=== PATIENT | female | born 1960 | race Two or more races ===

== ENCOUNTER 2024-02-26 13:34 | Outpatient (RCR) | payer MEDICAID, SELFPAY ==
[2024-02-17 15:04] LABS: Basophils % (Auto) 1 % (0-2.5); Eosinophils % (Auto) 1 % (0-10); Hematocrit 30.7 % (36.0-46.0); Hemoglobin 9.7 g/dL (12.0-16.0); Immature Granulocytes % (Auto) 0 % (0-0); Lymphocytes # (Auto) 0.4 Thou/mm3 (1.0-4.8); Lymphocytes % (Auto) 28 % (10-50); Mean Corpuscular HGB Conc 31.6 g/dl (31.0-37.0); Mean Corpuscular Hemoglobin 25.1 pg (25.0-35.0); Mean Corpuscular Volume 79 fL (80-100); Monocytes # (Auto) 0.2 Thou/mm3 (0.0-0.8); Monocytes % (Auto) 10 % (0-12); Neutrophils # (Auto) 0.9 Thou/mm3 (1.8-7.7); Neutrophils % (Auto) 61 % (37-80); Nucleated Red Blood Cell % 0 /100 WBC (0); RDW Standard Deviation 50.1 fL (36.4-46.3); Red Blood Count 3.87 Miln/mm3 (4.00-5.20)
[2024-02-17 15:22] LABS: Alanine Aminotransferase 46 U/L (10-49); Albumin, Serum 3.1 gm/dL (3.4-4.8); Albumin/Globulin Ratio 1.1 (1.2-2.2); Alkaline Phosphatase 181 U/L (46-116); Anion Gap 5 (7-16); Aspartate Amino Transferase 41 U/L (0-34); BUN/Creatinine Ratio 12 Ratio (12-20); Bilirubin,Total 2.2 mg/dL (0.3-1.2); Blood Urea Nitrogen 11 mg/dL (9-23); Calcium 8.4 mg/dL (8.3-10.6); Calcium (Corrected) 9.1 mg/dL (8.5-10.1); Carbon Dioxide 23.1 mMol/L (20.0-31.0); Chloride 105 mMol/L (98-107); Creatinine (Component) 0.9 mg/dL (0.6-1.3); Globulin 2.9 gm/dL (2.3-3.5); Glucose 399 mg/dL (74-106); Osmolality,Calculated 282 (275-295); Potassium 4.6 mMol/L (3.4-5.1); Sodium 133 mMol/L (136-145); Thyroid Stimulating Hormone 1.16 uIU/mL (0.55-4.78); eGFR > 60 See Note
[2024-02-17 15:34] LABS: White Blood Count 1.5 Thou/mm3 (3.6-11.0)
[2024-02-17 15:35] LABS: Platelet Count 37 Thou/mm3 (140-440)
[2024-02-17 15:51] LABS: Slide Review Platelets confirmed
[2024-02-17 15:53] LABS: Path Review Blood Smear Sent to Pathologist
[2024-02-25 16:36] LABS: Basophils % (Auto) 1 % (0-2.5); Eosinophils % (Auto) 2 % (0-10); Hematocrit 34.7 % (36.0-46.0); Hemoglobin 10.6 g/dL (12.0-16.0); Immature Granulocytes % (Auto) 0 % (0-0); Lymphocytes # (Auto) 0.4 Thou/mm3 (1.0-4.8); Lymphocytes % (Auto) 27 % (10-50); Mean Corpuscular HGB Conc 30.5 g/dl (31.0-37.0); Mean Corpuscular Hemoglobin 25.7 pg (25.0-35.0); Mean Corpuscular Volume 84 fL (80-100); Monocytes # (Auto) 0.2 Thou/mm3 (0.0-0.8); Monocytes % (Auto) 11 % (0-12); Neutrophils % (Auto) 60 % (37-80); Nucleated Red Blood Cell % 0 /100 WBC (0); RDW Standard Deviation 54.9 fL (36.4-46.3); Red Blood Count 4.12 Miln/mm3 (4.00-5.20)
[2024-02-25 16:46] LABS: Platelet Count 39 Thou/mm3 (140-440); White Blood Count 1.6 Thou/mm3 (3.6-11.0)
[2024-02-25 17:17] LABS: Alanine Aminotransferase 43 U/L (10-49); Albumin, Serum 3.3 gm/dL (3.4-4.8); Albumin/Globulin Ratio 1.1 (1.2-2.2); Alkaline Phosphatase 221 U/L (46-116); Anion Gap 8 (7-16); Aspartate Amino Transferase 37 U/L (0-34); BUN/Creatinine Ratio 13 Ratio (12-20); Blood Urea Nitrogen 10 mg/dL (9-23); Calcium 8.6 mg/dL (8.3-10.6); Calcium (Corrected) 9.2 mg/dL (8.5-10.1); Carbon Dioxide 20.8 mMol/L (20.0-31.0); Chloride 108 mMol/L (98-107); Creatinine (Component) 0.8 mg/dL (0.6-1.3); Globulin 3.1 gm/dL (2.3-3.5); Glucose 389 mg/dL (74-106); Osmolality,Calculated 288 (275-295); Potassium 3.9 mMol/L (3.4-5.1); Sodium 137 mMol/L (136-145); Thyroid Stimulating Hormone 0.78 uIU/mL (0.55-4.78); Total Protein 6.4 gm/dL (5.7-8.2); eGFR > 60 See Note
[2024-02-25 17:32] LABS: Slide Review Platelets confirmed
== END 2024-03-14 23:59 | disposition home or self-care (01) ==
LOC: SCTC 13:34
PROVIDERS: PCP Family Medicine; Referring Provider Family Medicine; Visit Provider Internal Medicine Hematology & Oncology
DX: Z51.11 Encounter for antineoplastic chemotherapy (principal); C22.0 Liver cell carcinoma; D50.9 Iron deficiency anemia, unspecified; Z86.19 Personal history of other infectious and parasitic diseases; D61.818 Other pancytopenia; D69.6 Thrombocytopenia, unspecified; L98.8 Other specified disorders of the skin and subcutaneous tissue; R16.1 Splenomegaly, not elsewhere classified; K76.6 Portal hypertension; R18.8 Other ascites
CPT/HCPCS: 36591; 80053; 82105; 84443; 85025; 96365; 96367; 96372; 96413; 99212; A4216; J1642; J2405; J3490; J7050; J9173; Q0138; G0463

== ENCOUNTER 2024-03-25 13:57 | Outpatient (RCR) | payer MEDICAID, SELFPAY ==
[2024-03-24 11:08] LABS: Basophils % (Auto) 1 % (0-2.5); Eosinophils % (Auto) 2 % (0-10); Hematocrit 37.5 % (36.0-46.0); Hemoglobin 12.2 g/dL (12.0-16.0); Immature Granulocytes % (Auto) 0 % (0-0); Lymphocytes # (Auto) 0.6 Thou/mm3 (1.0-4.8); Lymphocytes % (Auto) 34 % (10-50); Mean Corpuscular HGB Conc 32.5 g/dl (31.0-37.0); Mean Corpuscular Hemoglobin 27.3 pg (25.0-35.0); Mean Corpuscular Volume 84 fL (80-100); Monocytes # (Auto) 0.2 Thou/mm3 (0.0-0.8); Monocytes % (Auto) 10 % (0-12); Neutrophils % (Auto) 54 % (37-80); Nucleated Red Blood Cell % 0 /100 WBC (0); RDW Standard Deviation 62.1 fL (36.4-46.3); Red Blood Count 4.47 Miln/mm3 (4.00-5.20)
[2024-03-24 11:28] LABS: Alanine Aminotransferase 57 U/L (10-49); Albumin, Serum 3.4 gm/dL (3.4-4.8); Albumin/Globulin Ratio 1.2 (1.2-2.2); Alkaline Phosphatase 199 U/L (46-116); Anion Gap 5 (7-16); Aspartate Amino Transferase 38 U/L (0-34); BUN/Creatinine Ratio 13 Ratio (12-20); Blood Urea Nitrogen 8 mg/dL (9-23); Calcium 8.8 mg/dL (8.3-10.6); Calcium (Corrected) 9.3 mg/dL (8.5-10.1); Carbon Dioxide 25.6 mMol/L (20.0-31.0); Chloride 105 mMol/L (98-107); Creatinine (Component) 0.6 mg/dL (0.6-1.3); Globulin 2.8 gm/dL (2.3-3.5); Glucose 185 mg/dL (74-106); Osmolality,Calculated 275 (275-295); Potassium 3.6 mMol/L (3.4-5.1); Sodium 136 mMol/L (136-145); Thyroid Stimulating Hormone 2.25 uIU/mL (0.55-4.78); Total Protein 6.2 gm/dL (5.7-8.2); White Blood Count 1.9 Thou/mm3 (3.6-11.0); eGFR > 60 See Note
[2024-03-24 11:29] LABS: Platelet Count 52 Thou/mm3 (140-440); Slide Review Platelets confirmed
== END 2024-04-14 23:59 | disposition home or self-care (01) ==
LOC: SCTC 13:57
PROVIDERS: PCP Family Medicine; Referring Provider Family Medicine; Visit Provider Internal Medicine Hematology & Oncology
DX: Z51.11 Encounter for antineoplastic chemotherapy (principal); C22.0 Liver cell carcinoma; D50.9 Iron deficiency anemia, unspecified
CPT/HCPCS: 36591; 80053; 82105; 84443; 85025; 96365; 96367; 96375; 96413; A4216; J1642; J2405; J2919; J3490; J7050; J9173; Q0138

== ENCOUNTER 2024-04-27 14:32 | Outpatient (RCR) | payer MEDICAID, SELFPAY ==
[2024-04-21 10:47] LABS: Basophils % (Auto) 0 % (0-2.5); Eosinophils % (Auto) 2 % (0-10); Hematocrit 38.4 % (36.0-46.0); Immature Granulocytes % (Auto) 1 % (0-0); Immature Granulocytes Auto 0.01 Thou/mm3 (0.00-0.00); Lymphocytes # (Auto) 0.5 Thou/mm3 (1.0-4.8); Lymphocytes % (Auto) 22 % (10-50); Mean Corpuscular HGB Conc 33.9 g/dl (31.0-37.0); Mean Corpuscular Hemoglobin 29.3 pg (25.0-35.0); Mean Corpuscular Volume 87 fL (80-100); Monocytes # (Auto) 0.2 Thou/mm3 (0.0-0.8); Monocytes % (Auto) 9 % (0-12); Neutrophils # (Auto) 1.5 Thou/mm3 (1.8-7.7); Neutrophils % (Auto) 66 % (37-80); Nucleated Red Blood Cell % 0 /100 WBC (0); RDW Standard Deviation 61.5 fL (36.4-46.3); Red Blood Count 4.44 Miln/mm3 (4.00-5.20)
[2024-04-21 10:57] LABS: Platelet Count 36 Thou/mm3 (140-440); White Blood Count 2.2 Thou/mm3 (3.6-11.0)
[2024-04-21 11:09] LABS: Alanine Aminotransferase 59 U/L (10-49); Albumin, Serum 3.1 gm/dL (3.4-4.8); Albumin/Globulin Ratio 1.1 (1.2-2.2); Alkaline Phosphatase 227 U/L (46-116); Anion Gap 7 (7-16); Aspartate Amino Transferase 55 U/L (0-34); BUN/Creatinine Ratio 12 Ratio (12-20); Bilirubin,Total 1.8 mg/dL (0.3-1.2); Blood Urea Nitrogen 7 mg/dL (9-23); Calcium 8.7 mg/dL (8.3-10.6); Calcium (Corrected) 9.4 mg/dL (8.5-10.1); Carbon Dioxide 25.2 mMol/L (20.0-31.0); Chloride 107 mMol/L (98-107); Creatinine (Component) 0.6 mg/dL (0.6-1.3); Globulin 2.9 gm/dL (2.3-3.5); Glucose 159 mg/dL (74-106); Osmolality,Calculated 278 (275-295); Potassium 3.5 mMol/L (3.4-5.1); Sodium 139 mMol/L (136-145); eGFR > 60 See Note
[2024-04-21 13:02] LABS: Slide Review Platelets confirmed
[2024-04-21 13:57] LABS: Thyroid Stimulating Hormone 3.51 uIU/mL (0.55-4.78)
--- NOTE | 2024-04-27 15:40 | CTCFLWUP_ITS ---
Patient: NICHOLE FITZGERALD : 1960 Page 2 of 2 FOLLOW UP NOTE DATE OF SERVICE: 04/27/2024 NAME: NICHOLE FITZGERALD ACCOUNT: [id number] : 1960 AGE: 63 INTERVAL HISTORY: Patient was evaluated by her commercial account officer and found to have well-functioning TIPS. I also revi ewed notes from [facility] and recommendation was to continue durvalumab and MRI every 4 months to see resp onse to treatment. Patient otherwise doing well. She has received 3 doses of iron. ONCOLOGY HISTORY: DIAGNOSIS: Iron deficiency anemia, unspecified [ICD10] D50.9 DATE OF DIAGNOSIS: 02/21/2022 STAGE/TNM: Hepatocellular cancer TREATMENT HISTORY: Care?Plan Start?Date Cycle Day Intent VENOfer?200mg?IV?wkly?for?10?weeks 03/12/2022 1 70 Palliative Atezolizumab?plus?Avastin 06/21/2022 1 21 Palliative ATEZolizumab?1 12/19/2022 1 21 Palliative INJECTAFER 12/13/2022 1 14 Palliative Tremelimumab?Durvalumab 03/12/2023 1 28 Palliative Durvalumab?maintenance?cholangiocarcinoma?regimen?2 11/05/2023 1 28 Palliative FERAheme?4?doses 02/17/2024 1 28 Maintenance HISTORY OF PRESENT ILLNESS: Nichole Gomez is a 63-year-old S[place] speaking female referred to hematology clinic to evaluate the cause for pancytopenia. Patient was previously seen at [facility] who did not feel she was a candidate for surgical resection, and subsequently referred for radioembolization (Y90) ablation therapy at [facility] in [facility] who, per jude vega, then referred patient to our cancer center for immunotherapy to see if the tumor could be s hrunk first. 1980s: Patient had multiple blood transfusions in [place] for hemorrhage. 2006: Patient was diagnosed with hepatitis C, cirrhosis of the liver and thrombocytopenia. 2018: She was treated for hepatitis C with injections. Patient does not remember the names of the [facility] gs. 2019: Patient had colonoscopy done 08/24/2021: WBC 2.3, ANC 1.2, hemoglobin 10.6, MCV 71, platelet count 52,000 peripheral smear showed f ew teardrop cells, ovalocytes, schistocytes 01/03/2022: AFP 47.1, HIV negative, ferritin 5 HCV RT-PCR quantitative negative hemoglobin 9.8, MCV 74 , platelets 45,000. 02/05/2022: Platelet count 60,000. 02/21/2022: MRI of the abdomen with and without contrast? 05/25/2022: CT scan of the chest, abdomen and pelvis with IV contrast: 07/12/2022: AFP level 231 07/23/2022: Patient reports feeling good, denies complaints except concern about a 1cm round purpuric scaley lesion on distal left arm. She reports tolerating her first two atezolizumab and bevacizumab infusions on 023 and 07/12/2022 very well with no symptoms, next session is planned for 08/02/2022. She has been getting them via RUE PICC line, as her platelets were deemed too low for port-a-cath placement. Patient has previously received avatrombopag to raise platelet levels, however this must be balanced against the risk of thrombosis. A CT scan on 06/13/2022 showed extensive tumor thrombus in the portal venous system, for which patient was started on treatment dose Eliquis. However, on this visit patient?s daughter reports that the [facility] tumor board d eemed anticoagulation too risky given patient?s thrombocytopenia and hx GI bleed and discontinued it (we wi ll request this documentation from them). Patient?s daughter also reports that on 06/19/2022, patient?s lymph node was biopsied (we will request these records as well). Dr Haines called and spoke with IR Dr Reed by phone on 07/23/2022, who agrees to attempt chemo-port plac ement as long as patient has 2 units of platelet pheresis running right before. CBC/PT/INR will also need to b e redrawn beforehand. It will be coordinated via Elisa at his construction or leak gang laborer. 09/13/2022 AFP 2.7 06/19/2022 pathology report came through from 06/19/2022: 09/25/2022: CT 10/18/2022: MRI abdomen w/o contrast 10/29/2022: AFP 3.30, bilirubin 3.5 11/13/2022 - 11/19/2022: Patient was admitted to the hospital for upper GI bleeding from esophageal varic es. She had banding done. 12/06/2022: T. bili is 2.7, AFP is 3.80. 12/20/2022 - 01/01/2023: Ms. Fitzgerald was admitted to [facility] because of bleed ing varicose veins as well as hypotension requiring pressor support. 01/10/2023: MRI abdomen with and without contrast, MRI abdomen without contrast MRCP? 03/12/2023: Ms. Fitzgerald is started on tremelimumab and durvalumab. 05/23/2023: Ms. Fitzgerald was admitted to [facility] due to upper GI bleeding fro m esophageal varices. She had banding done in the hospital by Dr. Garland. Currently she is being aleksandar luated for TIPS procedure later this week in [place] by Dr. Snyder. 08/30/2023: MRI of the abdomen 12/12/2023 MRI liver impression Bob RADS category LR M DIV based on 02/21/2022 appearance and resuming noted local regional therapy for the dominant lesion in segment 4A oblique 8 although there is centra l hypointense area that appears to be relatively nonviable tumor there is again a surrounding area of ill-defined hyperenhancement which is likely viable tumor. Focus arterial enhancement along the lef t inferior aspect described on 01/10/2023 has not recently changed. Observation is likely not signifi cantly changed from 05/14/2023 and 01/10/2023 the other previously described liver observation has been downgraded to Bob RADS category alert to. 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 albuterol - 90 mcg/actuation As directed 2. atorvastatin - 20 mg 1 tab Daily 3. lactulose - 20 gram 1 Three times a day 4. Lantus Solostar - 100 unit/mL (3 mL) 35 Unit Twice a Day 5. pantoprazole - 40 mg 1 Daily 6. Synthroid - 50 mcg 1 tab As directed 7. Xifaxan - 550 mg Twice a Day 8. ZyrTEC - 10 mg 1 Capsule Daily Medications Last Reconciled by Norma Tapia RN on 04/27/2024 ALLERGIES: No Known Drug Allergies REVIEW OF SYSTEMS: A complete 14-point review of systems was performed and is negative except as noted in interval histo ry. PHYSICAL EXAMINATION: VITAL SIGNS: Temperature?98.6, B/P?128/75, Oxygen?Saturation?94% Weight?170?lbs (Change?since?04/22/24: ?0.6?lbs) PAIN: 0 - No pain ECOG Performance Status: 1 - Symptomatic; ambulatory; restricted in strenuous activity GENERAL APPEARANCE: Appears well, in no apparent distress, appropriately interactive. HEENT: Normocephalic, no temporal wasting, normal conjunctiva, no scleral icterus, normal hearing, li ps without lesions, neck normal range of motion. CARDIOVASCULAR: Not assessed. PULMONARY: Normal respiratory effort, no respiratory distress or use of accessory muscles, speaking i n full sentences, no tachypnea. EXTREMITIES: No pedal edema or cyanosis. SKIN: Normal skin appearance. NEUROLOGIC: Alert and oriented x4. PSHYCHIATRIC: Appropriate affect, mood normal, behavior normal, intact thought and speech. LABORATORY DATA: I have personally reviewed and interpreted each of the patient?s relevant lab tests, abnormal finding s are below: Date 04/21/24 ??GLUCOSE,RANDOM?(mg/dL) 159?H ??BLOOD?UREA?NITROGEN?(mg/dL) 7?L ??CREATININE?(mg/dL) 0.60 ??SODIUM?(mmol/L) 139 ??POTASSIUM?(mmol/L) 3.5 ??CHLORIDE?(mmol/L) 107 ??CrCl?(CandG)?(ml/min) 117.79 ??AST/SGOT?(Unit/L) 55?H ??ALT/SGPT?(Unit/L) 59?H ??ALKALINE?PHOSPHATASE?(Unit/L) 227?H ??BILIRUBIN,?TOTAL?(mg/dL) 1.8?H ??PROTEIN?TOTAL?(gm/dl) 6.0 ??ALBUMIN,?SERUM?(gm/dl) 3.1?L ??GLOBULIN?(gm/dl) 2.9 ??ALBUMIN/GLOBULIN?RATIO 1.1?L ??CALCIUM,?SERUM?(mg/dL) 8.7 ??CALCIUM?SERUM?(CORRECTED)?(mg/dL) 9.4 ASSESSMENT/PLAN: Hepatocellular tumor Patient received first dose of durvalumab and tremelimumab and now on maintenance durvalumab recently Ms. Fitzgerald had follow-up visit with Dr. Farmer of [facility] who recommended continuing du rvalumab Ms. Fitzgerald is currently on single agent dose of durvalumab. She is tolerating it reasonably well.. Both last MRIs have been unreliable showing significant motion artifacts. This artifacts are likely from TIPS procedure. She had banding done by Dr. Garland. She completed TIPS procedure in [place]. She is on durvalumab. She received 1 dose of tremelimumab and with [facility] prior to that. . Ms. Fitzgerald had a ERCP done on 01/10/2023 in [place] which showed focal narrowing in the mid to distal common bile duct about the level of the pancreatic head with a diameter measured narrows down to about 1 mm. Patient was admitted to [facility] on 12/20/2022 because of hypotension and bleeding from bart icose veins. Patient was recently admitted to the hospital because of upper GI bleeding from esophageal varices fo r which banding was performed. -Well differentiated hepatocellular carcinoma with elevated AFP level. AFP remains low, following un lacey [facility] as well Patient was treated with atezolizumab and bevacizumab. Patient's alpha-fetoprotein was more than 700 0 at the time of occurrence. Patient's alpha-fetoprotein protein remains in single-digit now Patient have CT scan ordered to follow-up on the lungs which is scheduled for end of this month Patient need MRI to evaluate any liver lesions orders placed Patient would like to get it completed at [facility] Follow-up with CBC CMP alpha-fetoprotein 2 weeks 2. Portal vein thrombus --CT scans showed right lobe liver lesion as well as splenomegaly, portal hy pertension, mild ascites as well as extensive para-aortic, paracaval lymphadenopathy. CT scan on 06/13/2022 scan also showed extensive tumo r thrombus in the portal venous system for which treatment-dose Eliquis was previously initiated, and s topped per [facility] tumor board due to concern for thrombocytopenia and previous GI bleed. 3. Iron deficiency anemia s/p 10 weekly Venofer infusions (January-March 2022) followed by low ir on level and is now being treated with Feraheme. Patient already received 1.5 g of iron I will defer the last dosing in 2 to 3 months 4. History of hepatitis C infection, she was treated with unknown medication(s) in [place] in 2017 5. End-stage liver disease (ESLD) 2/2 hepatitis C infection 2/2 blood transfusion in 1979 6. Complications of ESLD including ascites on diuretics, GI bleed 2/2 portal HTN and esophageal vari anirudh s/p ligation, pancytopenia 7. Thrombocytopenia previously responded well to Doptelet (avatrombopag). Continue to monitor MRI abdomen pelvis ordered CBC CMP alpha-fetoprotein CT is already ordered RETURN TO CLINIC: 4 weeks BILLING AND COMPLIANCE: I reviewed external records from providers outside my specialty as summarized above. I spent a total of 50 minutes on this patient?s care on the day of their visit excluding time spent related to any bi lled procedures. This time includes time spent with the patient as well as time spent documenting in the medical record, reviewing patients records and tests, obtaining history, placing orders, communi cating with other healthcare professionals, counseling the patient, family or caregiver, and/or care coordination for the diagnoses above. Electronically Signed by: Fransisco Dey MD T: 3:38 PM CC: PCP: Chau Arvizu Referring: Chau Arvizu This document was completed utilizing speech recognition software. Grammatical errors, random word in sertions, pronoun errors, and incomplete sentences are an occasional consequence of this system due t o software limitations, ambient noise, and hardware issues. Any formal questions or concerns about th e content, text or information contained within the body of this dictation should be directly address ed to the provider for clarification.
== END 2024-05-15 23:59 | disposition home or self-care (01) ==
LOC: SCTC 14:32
PROVIDERS: PCP Family Medicine; Referring Provider Family Medicine; Visit Provider Internal Medicine Hematology & Oncology
DX: Z51.11 Encounter for antineoplastic chemotherapy (principal); C22.0 Liver cell carcinoma; D50.9 Iron deficiency anemia, unspecified; D69.6 Thrombocytopenia, unspecified; Z86.19 Personal history of other infectious and parasitic diseases
CPT/HCPCS: 36591; 80053; 82105; 84443; 85025; 96365; 96367; 96375; 96413; 99212; A4216; J1642; J2919; J3490; J7050; J9173; Q0138; G0463

== ENCOUNTER → 2024-05-12 | Outpatient (CLI) | payer MEDICAID, SELFPAY ==
--- NOTE | 2024-05-12 12:00 | XR_ITS ---
Examination: CT chest with intravenous contrast 2-D sagittal and coronal reconstructions Exam date and time: May 04, 2024 1320 hours INDICATIONS: Diagnosis liver lung cancer diagnosis 2 years ago, restaging, 4 mm pulmonary nodule left lower lobe, 35 x 34 mm enhancing lesion right lobe liver on CT chest abdomen pelvis May 25, 2022 restaging CTDI:vol (mGy) 10.3 DLP: (mGycm) 368 Technique: Multiple axial sections of the thorax have been obtained. Sections have been obtained, 3 mm slice thickness. Mediastinal and lung density settings have been obtained. Intravenous contrast administered, 60 cc Isovue-370. 2-D sagittal, coronal images obtained. Low dose protocols were performed. One or more of the following dose reduction techniques were used; automated exposure control, adjustment of the mA and/or KV according to patient size, use of iterative reconstruction technique. Findings: No thoracic aortic aneurysmal dilatation No pulmonary artery emboli No paratracheal tracheobronchial or bronchopulmonary adenopathy No pneumonia, pulmonary edema, pleural disease 2 mm pulmonary nodule right lower lobe No left lung pulmonary nodules Portacaval shunt Liver irregular in contour Cholelithiasis Poorly defined lesion dome of the liver on the right, 20 mm Retrocardiac gastric hernia Right kidney visualized no hydronephrosis Splenomegaly Moderate osteopenia IMPRESSION: 2 mm pulmonary nodule right lower lobe, suggest continued 6 month follow-up CT chest without contrast Suspicious for new 20 mm lesion dome of the liver on the right, consider MRI abdomen liver follow-up pre and postcontrast
== END | disposition home or self-care (01) ==
LOC: CCTX 11:46
PROVIDERS: Referring Provider Internal Medicine Hematology & Oncology; Visit Provider Internal Medicine Hematology & Oncology
DX: R91.1 Solitary pulmonary nodule (principal); C22.0 Liver cell carcinoma
CPT/HCPCS: 71260; A4649; Q9967

== ENCOUNTER 2024-05-20 08:58 | Outpatient (RCR) | payer MEDICAID, SELFPAY ==
[2024-05-19 15:54] LABS: Basophils % (Auto) 1 % (0-2.5); Eosinophils % (Auto) 1 % (0-10); Hematocrit 39.3 % (36.0-46.0); Hemoglobin 13.3 g/dL (12.0-16.0); Immature Granulocytes % (Auto) 0 % (0-0); Lymphocytes # (Auto) 0.5 Thou/mm3 (1.0-4.8); Lymphocytes % (Auto) 24 % (10-50); Mean Corpuscular HGB Conc 33.8 g/dl (31.0-37.0); Mean Corpuscular Volume 89 fL (80-100); Monocytes # (Auto) 0.3 Thou/mm3 (0.0-0.8); Monocytes % (Auto) 13 % (0-12); Neutrophils # (Auto) 1.2 Thou/mm3 (1.8-7.7); Neutrophils % (Auto) 62 % (37-80); Nucleated Red Blood Cell % 0 /100 WBC (0); RDW Standard Deviation 54.9 fL (36.4-46.3); Red Blood Count 4.44 Miln/mm3 (4.00-5.20)
[2024-05-19 16:13] LABS: Platelet Count 37 Thou/mm3 (140-440)
[2024-05-19 16:16] LABS: Alanine Aminotransferase 78 U/L (10-49); Albumin, Serum 3.1 gm/dL (3.4-4.8); Alkaline Phosphatase 220 U/L (46-116); Anion Gap 9 (7-16); Aspartate Amino Transferase 72 U/L (0-34); BUN/Creatinine Ratio 13 Ratio (12-20); Bilirubin,Total 2.4 mg/dL (0.3-1.2); Blood Urea Nitrogen 10 mg/dL (9-23); Calcium 8.6 mg/dL (8.3-10.6); Calcium (Corrected) 9.3 mg/dL (8.5-10.1); Carbon Dioxide 23.2 mMol/L (20.0-31.0); Chloride 103 mMol/L (98-107); Creatinine (Component) 0.8 mg/dL (0.6-1.3); Osmolality,Calculated 288 (275-295); Potassium 4.1 mMol/L (3.4-5.1); Sodium 135 mMol/L (136-145); Thyroid Stimulating Hormone 1.97 uIU/mL (0.55-4.78); Total Protein 6.1 gm/dL (5.7-8.2); eGFR > 60 See Note
[2024-05-19 16:17] LABS: Glucose 433 mg/dL (74-106)
[2024-05-19 17:48] LABS: Slide Review Platelets confirmed
== END 2024-06-12 23:59 | disposition home or self-care (01) ==
LOC: SCTC 08:58
PROVIDERS: Referring Provider Internal Medicine Hematology & Oncology; Visit Provider Internal Medicine Hematology & Oncology
DX: Z51.11 Encounter for antineoplastic chemotherapy (principal); C22.0 Liver cell carcinoma; I81 Portal vein thrombosis; D50.9 Iron deficiency anemia, unspecified; I85.00 Esophageal varices without bleeding; K76.6 Portal hypertension; D61.818 Other pancytopenia; K72.10 Chronic hepatic failure without coma; Z86.19 Personal history of other infectious and parasitic diseases; R18.8 Other ascites
CPT/HCPCS: 36591; 80053; 82105; 84443; 85025; 96367; 96413; A4216; J1642; J2405; J7050; J9173

== ENCOUNTER 2024-06-25 08:35 | Outpatient (RCR) | payer MEDICAID, SELFPAY ==
[2024-06-16 15:11] LABS: Basophils % (Auto) 0 % (0-2.5); Eosinophils % (Auto) 1 % (0-10); Hematocrit 37.7 % (36.0-46.0); Hemoglobin 12.4 g/dL (12.0-16.0); Immature Granulocytes % (Auto) 0 % (0-0); Lymphocytes # (Auto) 0.4 Thou/mm3 (1.0-4.8); Lymphocytes % (Auto) 19 % (10-50); Mean Corpuscular HGB Conc 32.9 g/dl (31.0-37.0); Mean Corpuscular Hemoglobin 30.7 pg (25.0-35.0); Mean Corpuscular Volume 93 fL (80-100); Monocytes # (Auto) 0.2 Thou/mm3 (0.0-0.8); Monocytes % (Auto) 11 % (0-12); Neutrophils # (Auto) 1.3 Thou/mm3 (1.8-7.7); Neutrophils % (Auto) 69 % (37-80); Nucleated Red Blood Cell % 0 /100 WBC (0); RDW Standard Deviation 51.5 fL (36.4-46.3); Red Blood Count 4.04 Miln/mm3 (4.00-5.20)
[2024-06-16 15:22] LABS: Platelet Count 38 Thou/mm3 (140-440); Slide Review Platelets confirmed; White Blood Count 1.8 Thou/mm3 (3.6-11.0)
[2024-06-16 15:30] LABS: Alanine Aminotransferase 72 U/L (10-49); Albumin, Serum 3.1 gm/dL (3.4-4.8); Albumin/Globulin Ratio 1.1 (1.2-2.2); Alkaline Phosphatase 214 U/L (46-116); Anion Gap 7 (7-16); Aspartate Amino Transferase 66 U/L (0-34); BUN/Creatinine Ratio 13 Ratio (12-20); Bilirubin,Total 2.3 mg/dL (0.3-1.2); Blood Urea Nitrogen 8 mg/dL (9-23); Calcium 8.4 mg/dL (8.3-10.6); Calcium (Corrected) 9.1 mg/dL (8.5-10.1); Carbon Dioxide 23.7 mMol/L (20.0-31.0); Chloride 107 mMol/L (98-107); Creatinine (Component) 0.6 mg/dL (0.6-1.3); Globulin 2.7 gm/dL (2.3-3.5); Glucose 304 mg/dL (74-106); Osmolality,Calculated 284 (275-295); Sodium 138 mMol/L (136-145); Total Protein 5.8 gm/dL (5.7-8.2); eGFR > 60 See Note
[2024-06-25 09:36] LABS: Basophils % (Auto) 1 % (0-2.5); Eosinophils % (Auto) 1 % (0-10); Hemoglobin 11.8 g/dL (12.0-16.0); Immature Granulocytes % (Auto) 1 % (0-0); Immature Granulocytes Auto 0.01 Thou/mm3 (0.00-0.00); Lymphocytes # (Auto) 0.3 Thou/mm3 (1.0-4.8); Lymphocytes % (Auto) 18 % (10-50); Mean Corpuscular HGB Conc 32.8 g/dl (31.0-37.0); Mean Corpuscular Hemoglobin 30.9 pg (25.0-35.0); Mean Corpuscular Volume 94 fL (80-100); Monocytes # (Auto) 0.2 Thou/mm3 (0.0-0.8); Monocytes % (Auto) 14 % (0-12); Neutrophils % (Auto) 65 % (37-80); Nucleated Red Blood Cell % 0 /100 WBC (0); RDW Standard Deviation 51.8 fL (36.4-46.3); Red Blood Count 3.82 Miln/mm3 (4.00-5.20)
[2024-06-25 09:51] LABS: Alanine Aminotransferase 72 U/L (10-49); Albumin, Serum 2.9 gm/dL (3.4-4.8); Alkaline Phosphatase 204 U/L (46-116); Anion Gap 8 (7-16); Aspartate Amino Transferase 86 U/L (0-34); BUN/Creatinine Ratio 18 Ratio (12-20); Blood Urea Nitrogen 7 mg/dL (9-23); Calcium 8.4 mg/dL (8.3-10.6); Calcium (Corrected) 9.3 mg/dL (8.5-10.1); Carbon Dioxide 25.2 mMol/L (20.0-31.0); Chloride 111 mMol/L (98-107); Creatinine (Component) 0.4 mg/dL (0.6-1.3); Glucose 195 mg/dL (74-106); Osmolality,Calculated 289 (275-295); Potassium 3.3 mMol/L (3.4-5.1); Sodium 144 mMol/L (136-145); eGFR > 60 See Note
[2024-06-25 09:54] LABS: Bilirubin,Total 2.2 mg/dL (0.3-1.2); Globulin 2.8 gm/dL (2.3-3.5); Thyroid Stimulating Hormone 1.29 uIU/mL (0.55-4.78); Total Protein 5.7 gm/dL (5.7-8.2)
[2024-06-25 10:03] LABS: Platelet Count 38 Thou/mm3 (140-440); White Blood Count 1.5 Thou/mm3 (3.6-11.0)
[2024-06-25 11:16] LABS: Slide Review Platelets confirmed
--- NOTE | 2024-07-12 22:49 | CTCFLWUP_ITS ---
Patient: NICHOLE FITZGERALD : 1960 Page 6 of 8 FOLLOW UP NOTE DATE OF SERVICE: 06/24/2024 NAME: NICHOLE FITZGERALD ACCOUNT: [id number] : 1960 AGE: 64 INTERVAL HISTORY: Patient was evaluated by her fieldwork coordinator and found to have well- functioning TIPS. I also reviewed notes from [facility] and recommendation was to continue durvalumab and MRI every 4 months to see response to treatment. Patient otherwise doing well. She has received 3 doses of iron. ONCOLOGY HISTORY: DIAGNOSIS: Iron deficiency anemia, unspecified [ICD10] D50.9 DATE OF DIAGNOSIS: 02/21/2022 STAGE/TNM: Hepatocellular cancer TREATMENT HISTORY: Care?Plan Start?Date Cycle Day Intent VENOfer?200mg?IV?wkly?for?10?weeks 03/12/2022 1 70 Palliative Atezolizumab?plus?Avastin 06/21/2022 1 21 Palliative ATEZolizumab?1 12/19/2022 1 21 Palliative INJECTAFER 12/13/2022 1 14 Palliative Tremelimumab?Durvalumab 03/12/2023 1 28 Palliative Durvalumab?maintenance?cholangiocarcinoma?regimen?2 11/05/2023 1 28 Palliative FERAheme?4?doses 02/17/2024 1 28 Maintenance HISTORY OF PRESENT ILLNESS: Nichole Gomez is a 64-year-old S[place] speaking female referred to hematology clinic to evaluate the cause for pancytopenia. Patient was previously seen at [facility] who did not feel she was a candidate for surgical resection, and subsequently referred for radioembolization (Y90) ablation therapy at [facility] in [facility] who, per daughter, then referred patient to our cancer center for immunotherapy to see if the tumor could be shrunk first. 1980s: Patient had multiple blood transfusions in [place] for hemorrhage. 2006: Patient was diagnosed with hepatitis C, cirrhosis of the liver and thrombocytopenia. 2018: She was treated for hepatitis C with injections. Patient does not remember the names of the drugs. 2019: Patient had colonoscopy done 08/24/2021: WBC 2.3, ANC 1.2, hemoglobin 10.6, MCV 71, platelet count 52,000 peripheral smear showed few teardrop cells, ovalocytes, schistocytes 01/03/2022: AFP 47.1, HIV negative, ferritin 5 HCV RT-PCR quantitative negative hemoglobin 9.8, MCV 74, platelets 45,000. 02/05/2022: Platelet count 60,000. 02/21/2022: MRI of the abdomen with and without contrast? 05/25/2022: CT scan of the chest, abdomen and pelvis with IV contrast: 07/12/2022: AFP level 231 07/23/2022: Patient reports feeling good, denies complaints except concern about a 1cm round purpuric scaley lesion on distal left arm. She reports tolerating her first two atezolizumab and bevacizumab infusions on 06/21/2022 and 07/12/2022 very well with no symptoms, next session is planned for 08/02/2022. She has been getting them via RUE PICC line, as her platelets were deemed too low for port-a-cath placement. Patient has previously received avatrombopag to raise platelet levels, however this must be balanced against the risk of thrombosis. A CT scan on 06/13/2022 showed extensive tumor thrombus in the portal venous system, for which patient was started on treatment dose Eliquis. However, on this visit patient?s daughter reports that the [facility] tumor board deemed anticoagulation too risky given patient?s thrombocytopenia and hx GI bleed and discontinued it (we will request this documentation from them). Patient?s daughter also reports that on 06/19/2022, patient?s lymph node was biopsied (we will request these records as well). Dr Haines called and spoke with IR Dr Reed by phone on 07/23/2022, who agrees to attempt chemo-port placement as long as patient has 2 units of platelet pheresis running right before. CBC/PT/INR will also need to be redrawn beforehand. It will be coordinated via Elisa at his supervisor laboratory. 09/13/2022 AFP 2.7 06/19/2022 pathology report came through from 06/19/2022: 09/25/2022: CT 10/18/2022: MRI abdomen w/o contrast 10/29/2022: AFP 3.30, bilirubin 3.5 11/13/2022 - 11/19/2022: Patient was admitted to the hospital for upper GI bleeding from esophageal varices. She had banding done. 12/06/2022: T. bili is 2.7, AFP is 3.80. 12/20/2022 - 01/01/2023: Ms. Fitzgerald was admitted to [facility] ([facility] because of bleeding varicose veins as well as hypotension requiring pressor support. 01/10/2023: MRI abdomen with and without contrast, MRI abdomen without contrast MRCP? 03/12/2023: Ms. Fitzgerald is started on tremelimumab and durvalumab. 05/23/2023: Ms. Fitzgerald was admitted to [facility] due to upper GI bleeding from esophageal varices. She had banding done in the hospital by Dr. Garland. Currently she is being evaluated for TIPS procedure later this week in [place] by Dr. Snyder. 08/30/2023: MRI of the abdomen 12/12/2023 MRI liver impression Bob RADS category LR M DIV based on 02/21/2022 appearance and resuming noted local regional therapy for the dominant lesion in segment 4A oblique 8 although there is central hypointense area that appears to be relatively nonviable tumor there is again a surrounding area of ill-defined hyperenhancement which is likely viable tumor. Focus arterial enhancement along the left inferior aspect described on 01/10/2023 has not recently changed. Observation is likely not significantly changed from 05/14/2023 and 01/10/2023 the other previously described liver observation has been downgraded to Bob RADS category alert to. 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 albuterol - 90 mcg/actuation As directed 2. atorvastatin - 20 mg 1 tab Daily 3. azithromycin - 250 mg 6 tab Daily 4. lactulose - 20 gram 1 Three times a day 5. Lantus Solostar - 100 unit/mL (3 mL) 35 Unit Twice a Day 6. pantoprazole - 40 mg 1 Daily 7. Synthroid - 50 mcg 1 tab As directed 8. Xifaxan - 550 mg Twice a Day 9. ZyrTEC - 10 mg 1 Capsule Daily Medications Last Reconciled by Elisa Gresham MD on 06/24/2024 ALLERGIES: No Known Drug Allergies REVIEW OF SYSTEMS: A complete 14-point review of systems was performed and is negative except as noted in interval history. PHYSICAL EXAMINATION: VITAL SIGNS: Temperature?98.6, B/P?127/68, Oxygen?Saturation?92% Weight?177?lbs (Change?since?06/16/24:?-0.6?lbs) PAIN: 0 - No pain ECOG Performance Status: None GENERAL APPEARANCE: Appears well, in no apparent distress, appropriately interactive. HEENT: Normocephalic, no temporal wasting, normal conjunctiva, no scleral icterus, normal hearing, lips without lesions, neck normal range of motion. CARDIOVASCULAR: Not assessed. PULMONARY: Normal respiratory effort, no respiratory distress or use of accessory muscles, speaking in full sentences, no tachypnea. EXTREMITIES: No pedal edema or cyanosis. SKIN: Normal skin appearance. NEUROLOGIC: Alert and oriented x4. PSHYCHIATRIC: Appropriate affect, mood normal, behavior normal, intact thought and speech. LABORATORY DATA: I have personally reviewed and interpreted each of the patient?s relevant lab tests, abnormal findings are below: Date 06/16/24 06/25/24 ??WHITE?BLOOD?COUNT?(Thou/mm3) 1.8?L 1.5?L ??RED?BLOOD?COUNT?(Miln/mm3) 4.04 3.82?L ??HEMOGLOBIN?(gm/dl) 12.4 11.8?L ??HEMATOCRIT?(%) 37.7 36.0 ??PLATELET?COUNT?(Thou/mm3) 38?L 38?L ??NEUTROPHILS?%,?AUTO?(%) 69 65 ??LYMPH?%,?AUTO?(%) 19 18 ??NEUTROPHILS,?AUTO?(Thou/mm3) 1.3?L 1.0?L ??GLUCOSE,RANDOM?(mg/dL) 304?H 195?H ??BLOOD?UREA?NITROGEN?(mg/dL) 8?L 7?L ??CREATININE?(mg/dL) 0.60 0.40?L ??SODIUM?(mmol/L) 138 144 ??POTASSIUM?(mmol/L) 4.0 3.3?L ??CHLORIDE?(mmol/L) 107 111?H ??CrCl?(CandG)?(ml/min) 120.46 179.68 ??AST/SGOT?(Unit/L) 66?H 86?H ??ALT/SGPT?(Unit/L) 72?H 72?H ??ALKALINE?PHOSPHATASE?(Unit/L) 214?H 204?H ??BILIRUBIN,?TOTAL?(mg/dL) 2.3?H 2.2?H ??PROTEIN?TOTAL?(gm/dl) 5.8 5.7 ??ALBUMIN,?SERUM?(gm/dl) 3.1?L 2.9?L ??GLOBULIN?(gm/dl) 2.7 2.8 ??ALBUMIN/GLOBULIN?RATIO 1.1?L 1.0?L ??CALCIUM,?SERUM?(mg/dL) 8.4 8.4 ??CALCIUM?SERUM?(CORRECTED)?(mg/dL) 9.1 9.3 ASSESSMENT/PLAN: Hepatocellular tumor Patient received first dose of durvalumab and tremelimumab and now on maintenance durvalumab recently Ms. Fitzgerald had follow-up visit with Dr. Farmer of [facility] who recommended continuing durvalumab Ms. Fitzgerald is currently on single agent dose of durvalumab. She is tolerating it reasonably well.. Both last MRIs have been unreliable showing significant motion artifacts. This artifacts are likely from TIPS procedure. She had banding done by Dr. Garland. She completed TIPS procedure in [place]. She is on durvalumab. She received 1 dose of tremelimumab and with [facility] prior to that. . Ms. Fitzgerald had a ERCP done on 01/10/2023 in [place] which showed focal narrowing in the mid to distal common bile duct about the level of the pancreatic head with a diameter measured narrows down to about 1 mm. Patient was admitted to [facility] on 12/20/2022 because of hypotension and bleeding from varicose veins. Patient was recently admitted to the hospital because of upper GI bleeding from esophageal varices for which banding was performed. -Well differentiated hepatocellular carcinoma with elevated AFP level. AFP remains low, following under [facility] as well Patient was treated with atezolizumab and bevacizumab. Patient's alpha- fetoprotein was more than 7000 at the time of occurrence. Patient's alpha- fetoprotein protein remains in single-digit now Patient have CT scan ordered to follow-up on the lungs which is scheduled for end of this month Patient need MRI to evaluate any liver lesions orders placed Patient would like to get it completed at [facility] Follow-up with CBC CMP alpha-fetoprotein 2 weeks 2. Portal vein thrombus --CT scans showed right lobe liver lesion as well as splenomegaly, portal hypertension, mild ascites as well as extensive para-aortic, paracaval lymphadenopathy. CT scan on 06/13/2022 scan also showed extensive tumor thrombus in the portal venous system for which treatment-dose Eliquis was previously initiated, and stopped per [facility] tumor board due to concern for thrombocytopenia and previous GI bleed. 3. Iron deficiency anemia s/p 10 weekly Venofer infusions (January-March 2022) followed by low iron level and is now being treated with Feraheme. Patient already received 1.5 g of iron I will defer the last dosing in 2 to 3 months 4. History of hepatitis C infection, she was treated with unknown medication(s) in [place] in 2017 5. End-stage liver disease (ESLD) 2/2 hepatitis C infection 2/2 blood transfusion in 1979 6. Complications of ESLD including ascites on diuretics, GI bleed 2/2 portal HTN and esophageal varices s/p ligation, pancytopenia 7. Thrombocytopenia previously responded well to Doptelet (avatrombopag). Continue to monitor CT scan and MRI reviewed All stable Cont current therapy Mri will be as per patient s primary liver specialist ORDERS: Order # Description RETURN TO CLINIC: 3 months BILLING AND COMPLIANCE: I reviewed external records from providers outside my specialty as summarized above. I spent a total of 50 minutes on this patient?s care on the day of their visit excluding time spent related to any billed procedures. This time includes time spent with the patient as well as time spent documenting in the medical record, reviewing patients records and tests, obtaining history, placing orders, communicating with other healthcare professionals, counseling the patient, family or caregiver, and/or care coordination for the diagnoses above. Electronically Signed by: {Object.Sanct_ID*PnP.NameFL@M}, {Object.Sanct_ID*PnP.Suffix@U} D: {Object.Sanct_Date} T: {Object.Sanct_Time} CC: PCP: Chau Arvizu Referring: Chau Arvizu This document was completed utilizing speech recognition software. Grammatical errors, random word insertions, pronoun errors, and incomplete sentences are an occasional consequence of this system due to software limitations, ambient noise, and hardware issues. Any formal questions or concerns about the content, text or information contained within the body of this dictation should be directly addressed to the provider for clarification.
== END 2024-07-13 23:59 | disposition home or self-care (01) ==
LOC: SCTC 08:35
PROVIDERS: PCP Family Medicine; Referring Provider Family Medicine; Visit Provider Internal Medicine Hematology & Oncology
DX: Z51.11 Encounter for antineoplastic chemotherapy (principal); C22.0 Liver cell carcinoma; I81 Portal vein thrombosis; D50.9 Iron deficiency anemia, unspecified; Z86.19 Personal history of other infectious and parasitic diseases; D69.6 Thrombocytopenia, unspecified; K76.6 Portal hypertension; R18.8 Other ascites
CPT/HCPCS: 36591; 80053; 82105; 84443; 85025; 96367; 96413; 99212; A4216; J1642; J2405; J7050; J9173; G0463

== ENCOUNTER 2024-07-30 11:19 | Outpatient (RCR) | payer MEDICAID, SELFPAY ==
[2024-07-22 09:59] LABS: Basophils % (Auto) 1 % (0-2.5); Eosinophils % (Auto) 2 % (0-10); Hematocrit 39.9 % (36.0-46.0); Hemoglobin 13.5 g/dL (12.0-16.0); Immature Granulocytes % (Auto) 0 % (0-0); Lymphocytes # (Auto) 0.6 Thou/mm3 (1.0-4.8); Lymphocytes % (Auto) 34 % (10-50); Mean Corpuscular HGB Conc 33.8 g/dl (31.0-37.0); Mean Corpuscular Volume 89 fL (80-100); Monocytes # (Auto) 0.2 Thou/mm3 (0.0-0.8); Monocytes % (Auto) 11 % (0-12); Neutrophils # (Auto) 0.9 Thou/mm3 (1.8-7.7); Neutrophils % (Auto) 52 % (37-80); Nucleated Red Blood Cell % 0 /100 WBC (0); RDW Standard Deviation 46.6 fL (36.4-46.3)
[2024-07-22 10:04] LABS: Platelet Count 37 Thou/mm3 (140-440); White Blood Count 1.7 Thou/mm3 (3.6-11.0)
[2024-07-22 10:06] LABS: Slide Review Platelets confirmed
[2024-07-22 10:20] LABS: Alanine Aminotransferase 49 U/L (10-49); Albumin, Serum 3.1 gm/dL (3.4-4.8); Alkaline Phosphatase 215 U/L (46-116); Anion Gap 10 (7-16); Aspartate Amino Transferase 55 U/L (0-34); BUN/Creatinine Ratio 16 Ratio (12-20); Bilirubin,Total 2.9 mg/dL (0.3-1.2); Blood Urea Nitrogen 8 mg/dL (9-23); Calcium 8.2 mg/dL (8.3-10.6); Calcium (Corrected) 8.9 mg/dL (8.5-10.1); Carbon Dioxide 24.6 mMol/L (20.0-31.0); Chloride 109 mMol/L (98-107); Creatinine (Component) 0.5 mg/dL (0.6-1.3); Glucose 118 mg/dL (74-106); Osmolality,Calculated 286 (275-295); Potassium 3.2 mMol/L (3.4-5.1); Sodium 144 mMol/L (136-145); Total Protein 6.1 gm/dL (5.7-8.2); eGFR > 60 See Note
== END 2024-08-12 23:59 | disposition home or self-care (01) ==
LOC: SCTC 11:19
PROVIDERS: PCP Family Medicine; Referring Provider Family Medicine; Visit Provider Internal Medicine Hematology & Oncology
DX: Z51.11 Encounter for antineoplastic chemotherapy (principal); C22.0 Liver cell carcinoma; D50.9 Iron deficiency anemia, unspecified; I81 Portal vein thrombosis; Z86.19 Personal history of other infectious and parasitic diseases; D69.6 Thrombocytopenia, unspecified
CPT/HCPCS: 36591; 80053; 82105; 84443; 85025; 96365; 96367; 96375; 96413; A4216; J1642; J2405; J2919; J3490; J7040; J7050; J9173; Q0138

== ENCOUNTER 2024-08-24 15:28 | Outpatient (RCR) | payer MEDICAID, SELFPAY ==
[2024-08-19 10:08] LABS: Basophils % (Auto) 1 % (0-2.5); Eosinophils % (Auto) 2 % (0-10); Hematocrit 38.3 % (36.0-46.0); Hemoglobin 13.1 g/dL (12.0-16.0); Immature Granulocytes % (Auto) 1 % (0-0); Immature Granulocytes Auto 0.01 Thou/mm3 (0.00-0.00); Lymphocytes # (Auto) 0.6 Thou/mm3 (1.0-4.8); Lymphocytes % (Auto) 32 % (10-50); Mean Corpuscular HGB Conc 34.2 g/dl (31.0-37.0); Mean Corpuscular Hemoglobin 31.2 pg (25.0-35.0); Mean Corpuscular Volume 91 fL (80-100); Monocytes # (Auto) 0.3 Thou/mm3 (0.0-0.8); Monocytes % (Auto) 14 % (0-12); Neutrophils % (Auto) 51 % (37-80); Nucleated Red Blood Cell % 0 /100 WBC (0); RDW Standard Deviation 52.1 fL (36.4-46.3)
[2024-08-19 10:13] LABS: Platelet Count 45 Thou/mm3 (140-440); White Blood Count 1.9 Thou/mm3 (3.6-11.0)
[2024-08-19 10:29] LABS: Alanine Aminotransferase 50 U/L (10-49); Albumin, Serum 3.1 gm/dL (3.4-4.8); Alkaline Phosphatase 197 U/L (46-116); Anion Gap 6 (7-16); Aspartate Amino Transferase 51 U/L (0-34); BUN/Creatinine Ratio 15 Ratio (12-20); Bilirubin,Total 2.8 mg/dL (0.3-1.2); Blood Urea Nitrogen 6 mg/dL (9-23); Calcium 8.1 mg/dL (8.3-10.6); Calcium (Corrected) 8.8 mg/dL (8.5-10.1); Carbon Dioxide 23.4 mMol/L (20.0-31.0); Chloride 110 mMol/L (98-107); Creatinine (Component) 0.4 mg/dL (0.6-1.3); Glucose 90 mg/dL (74-106); Osmolality,Calculated 275 (275-295); Potassium 3.3 mMol/L (3.4-5.1); Sodium 139 mMol/L (136-145); Thyroid Stimulating Hormone 3.58 uIU/mL (0.55-4.78); Total Protein 6.1 gm/dL (5.7-8.2); eGFR > 60 See Note
[2024-08-19 11:14] LABS: Slide Review Platelets confirmed
--- NOTE | 2024-08-26 13:22 | CTCFLWUP_ITS ---
Patient: NICHOLE FITZGERALD : 1960 Page 2 of 2 FOLLOW UP NOTE DATE OF SERVICE: 08/24/2024 NAME: NICHOLE FITZGERALD ACCOUNT: [id number] : 1960 AGE: 64 INTERVAL HISTORY: Subjective: Chief Complaint Elevated liver enzymes, recurrent urinary tract infections History of Present Illness Nichole, a female patient with a history of liver disease and recent immunotherapy treatment, presents for follow-up regarding elevated liver enzymes and recurrent urinary tract infections. The patient reports a history of elevated liver enzymes, which have been slowly improving. She has been taking rifaximin 550 mg twice daily as part of her treatment regimen. The patient also mentions experiencing two episodes of urinary tract infections recently. The first episode was severe, with the patient noting blood in her urine. The second time, she sought medical attention promptly upon noticing symptoms, and was prescribed the same antibiotics as before. The patient does not report any current symptoms related to her liver condition or urinary tract infections. She mentions having seen a doctor at [facility] via videoconference recently, who detected the urinary tract infection and prescribed medication. Medications and Supplements - Rifaximin 550 mg by mouth twice daily - Used to keep ammonia low - Bactrim - Discontinued. Was used for urinary tract infection. - Macrobid 100 mg by mouth once daily - Used prophylactically for urinary tract infections Review of Systems Genitourinary: Positive for urinary tract infection, history of hematuria. Negative for vaginal dryness. Objective: Laboratory, Imaging, and Diagnostic Test Results - Liver enzymes: Elevated, slowly improving - Urinalysis: Positive for urinary tract infection (performed twice, dates not specified) yONCOLOGY HISTORY: DIAGNOSIS: Iron deficiency anemia, unspecified [ICD10] D50.9 DATE OF DIAGNOSIS: 02/21/2022 STAGE/TNM: Hepatocellular cancer TREATMENT HISTORY: Care?Plan Start?Date Cycle Day Intent VENOfer?200mg?IV?wkly?for?10?weeks 03/12/2022 1 70 Palliative Atezolizumab?plus?Avastin 06/21/2022 1 21 Palliative ATEZolizumab?1 12/19/2022 1 21 Palliative INJECTAFER 12/13/2022 1 14 Palliative Tremelimumab?Durvalumab 03/12/2023 1 28 Palliative Durvalumab?maintenance?cholangiocarcinoma?regimen?2 11/05/202305 12 Palliative FERAheme?4?doses 02/17/2024 1 28 Maintenance HISTORY OF PRESENT ILLNESS: Nichole Gomez is a 64-year-old S[place] speaking female referred to hematology clinic to evaluate the cause for pancytopenia. Patient was previously seen at [facility] who did not feel she was a candidate for surgical resection, and subsequently referred for radioembolization (Y90) ablation therapy at [facility] in [place], who, per daughter, then referred patient to our cancer center for immunotherapy to see if the tumor could be shrunk first. 1980s: Patient had multiple blood transfusions in [place] for hemorrhage. 2005: Patient was diagnosed with hepatitis C, cirrhosis of the liver and thrombocytopenia. 2018: She was treated for hepatitis C with injections. Patient does not remember the names of the drugs. 2019: Patient had colonoscopy done 08/24/2021: WBC 2.3, ANC 1.2, hemoglobin 10.6, MCV 71, platelet count 52,000 peripheral smear showed few teardrop cells, ovalocytes, schistocytes 01/03/2022: AFP 47.1, HIV negative, ferritin 5 HCV RT-PCR quantitative negative hemoglobin 9.8, MCV 74, platelets 45,000. 02/05/2022: Platelet count 60,000. 02/21/2022: MRI of the abdomen with and without contrast? 05/25/2022: CT scan of the chest, abdomen and pelvis with IV contrast: 07/12/2022: AFP level 231 07/23/2022: Patient reports feeling good, denies complaints except concern about a 1cm round purpuric scaley lesion on distal left arm. She reports tolerating her first two atezolizumab and bevacizumab infusions on 06/21/2022 and 07/12/2022 very well with no symptoms, next session is planned for 08/02/2022. She has been getting them via RUE PICC line, as her platelets were deemed too low for port-a-cath placement. Patient has previously received avatrombopag to raise platelet levels, however this must be balanced against the risk of thrombosis. A CT scan on 06/13/2022 showed extensive tumor thrombus in the portal venous system, for which patient was started on treatment dose Eliquis. However, on this visit patient?s daughter reports that the [facility] tumor board deemed anticoagulation too risky given patient?s thrombocytopenia and hx GI bleed and discontinued it (we will request this documentation from them). Patient?s daughter also reports that on 06/19/2022, patient?s lymph node was biopsied (we will request these records as well). Dr Haines called and spoke with IR Dr Reed by phone on 07/23/2022, who agrees to attempt chemo-port placement as long as patient has 2 units of platelet pheresis running right before. CBC/PT/INR will also need to be redrawn beforehand. 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 09/13/2022 AFP 2.7 06/19/2022 pathology report came through from 06/19/2022: 09/25/2022: CT 10/18/2022: MRI abdomen w/o contrast 10/29/2022: AFP 3.30, bilirubin 3.5 11/13/2022 - 11/19/2022: Patient was admitted to the hospital for upper GI bleeding from esophageal varices. She had banding done. 12/06/2022: T. bili is 2.7, AFP is 3.80. 12/20/2022 - 01/01/2023: Ms. Fitzgerald was admitted to [facility] because of bleeding varicose veins as well as hypotension requiring pressor support. 01/10/2023: MRI abdomen with and without contrast, MRI abdomen without contrast MRCP? 03/12/2023: Ms. Fitzgerald is started on tremelimumab and durvalumab. 05/23/2023: Ms. Fitzgerald was admitted to [facility] due to upper GI bleeding from esophageal varices. She had banding done in the hospital by Dr. Garland. Currently she is being evaluated for TIPS procedure later this week in [place] by Dr. Snyder. 08/30/2023: MRI of the abdomen 12/12/2023 MRI liver impression Bob RADS category LR M DIV based on 02/21/2022 appearance and resuming noted local regional therapy for the dominant lesion in segment 4A oblique 8 although there is central hypointense area that appears to be relatively nonviable tumor there is again a surrounding area of ill-defined hyperenhancement which is likely viable tumor. Focus arterial enhancement along the left inferior aspect described on 01/10/2023 has not recently changed. Observation is likely not significantly changed from 05/14/2023 and 01/10/2023 the other previously described liver observation has been downgraded to Bob RADS category alert to. 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 albuterol - 90 mcg/actuation As directed 2. atorvastatin - 20 mg 1 tab Daily 3. azithromycin - 250 mg 6 tab Daily 4. lactulose - 20 gram 1 Three times a day 5. Lantus Solostar - 100 unit/mL (3 mL) 35 Unit Twice a Day 6. nitrofurantoin macrocrystal - 100 mg 1 Capsule Daily 7. pantoprazole - 40 mg 1 Daily 8. Synthroid - 50 mcg 1 tab As directed 9. Xifaxan - 550 mg Twice a Day 10. ZyrTEC - 10 mg 1 Capsule Daily Medications Last Reconciled by Elisa Gresham MD on 08/24/2024 ALLERGIES: No Known Drug Allergies REVIEW OF SYSTEMS: A complete 14-point review of systems was performed and is negative except as noted in interval history. PHYSICAL EXAMINATION: VITAL SIGNS: Temperature?98.6, B/P?132/71, Oxygen?Saturation?95% Weight?174?lbs (Change?since?08/20/24:?-5.6?lbs) PAIN: 0 - No pain ECOG Performance Status: 0 - Asymptomatic and fully active GENERAL APPEARANCE: Appears well, in no apparent distress, appropriately interactive. HEENT: Normocephalic, no temporal wasting, normal conjunctiva, no scleral icterus, normal hearing, lips without lesions, neck normal range of motion. CARDIOVASCULAR: Not assessed. PULMONARY: Normal respiratory effort, no respiratory distress or use of accessory muscles, speaking in full sentences, no tachypnea. EXTREMITIES: No pedal edema or cyanosis. SKIN: Normal skin appearance. NEUROLOGIC: Alert and oriented x4. PSHYCHIATRIC: Appropriate affect, mood normal, behavior normal, intact thought and speech. LABORATORY DATA: I have personally reviewed and interpreted each of the patient?s relevant lab tests, abnormal findings are below: Date 07/22/24 08/19/24 ??WHITE?BLOOD?COUNT?(Thou/mm3) 1.7?L 1.9?L ??RED?BLOOD?COUNT?(Miln/mm3) 4.50 4.20 ??HEMOGLOBIN?(gm/dl) 13.5 13.1 ??HEMATOCRIT?(%) 39.9 38.3 ??PLATELET?COUNT?(Thou/mm3) 37?L 45?L ??NEUTROPHILS?%,?AUTO?(%) 52 51 ??LYMPH?%,?AUTO?(%) 34 32 ??NEUTROPHILS,?AUTO?(Thou/mm3) 0.9?L 1.0?L ??GLUCOSE,RANDOM?(mg/dL) 118?H 90 ??BLOOD?UREA?NITROGEN?(mg/dL) 8?L 6?L ??CREATININE?(mg/dL) 0.50?L 0.40?L ??SODIUM?(mmol/L) 144 139 ??POTASSIUM?(mmol/L) 3.2?L 3.3?L ??CHLORIDE?(mmol/L) 109?H 110?H ??CrCl?(CandG)?(ml/min) 139.18 180.09 ??AST/SGOT?(Unit/L) 55?H 51?H ??ALT/SGPT?(Unit/L) 49 50?H ??ALKALINE?PHOSPHATASE?(Unit/L) 215?H 197?H ??BILIRUBIN,?TOTAL?(mg/dL) 2.9?H 2.8?H ??PROTEIN?TOTAL?(gm/dl) 6.1 6.1 ??ALBUMIN,?SERUM?(gm/dl) 3.1?L 3.1?L ??GLOBULIN?(gm/dl) 3.0 3.0 ??ALBUMIN/GLOBULIN?RATIO 1.0?L 1.0?L ??CALCIUM,?SERUM?(mg/dL) 8.2?L 8.1?L ??CALCIUM?SERUM?(CORRECTED)?(mg/dL) 8.9 8.8 ASSESSMENT/PLAN: Hepatocellular tumor Patient received first dose of durvalumab and tremelimumab and now on maintenance durvalumab recently Ms. Fitzgerald had follow-up visit with Dr. Farmer of [facility] who recommended continuing durvalumab Ms. Fitzgerald is currently on single agent dose of durvalumab. She is tolerating it reasonably well.. Both last MRIs have been unreliable showing significant motion artifacts. This artifacts are likely from TIPS procedure. She had banding done by Dr. Garland. She completed TIPS procedure in [place]. She is on durvalumab. She received 1 dose of tremelimumab and with [facility] prior to that. . Ms. Fitzgerald had a ERCP done on 01/10/2023 in [place] which showed focal narrowing in the mid to distal common bile duct about the level of the pancreatic head with a diameter measured narrows down to about 1 mm. Patient was admitted to [facility] on 12/20/2022 because of hypotension and bleeding from varicose veins. Patient was recently admitted to the hospital because of upper GI bleeding from esophageal varices for which banding was performed. -Well differentiated hepatocellular carcinoma with elevated AFP level. AFP remains low, following under [facility] as well Patient was treated with atezolizumab and bevacizumab. Patient's alpha- fetoprotein was more than 7000 at the time of occurrence. Patient's alpha- fetoprotein protein remains in single-digit now Patient have CT scan ordered to follow-up on the lungs which is scheduled for end of this month Patient need MRI to evaluate any liver lesions orders placed Patient would like to get it completed at [facility] Follow-up with CBC CMP alpha-fetoprotein 2 weeks 2. Portal vein thrombus --CT scans showed right lobe liver lesion as well as splenomegaly, portal hypertension, mild ascites as well as extensive para-aortic, paracaval lymphadenopathy. CT scan on 06/13/2022 scan also showed extensive tumor thrombus in the portal venous system for which treatment-dose Eliquis was previously initiated, and stopped per [facility] tumor board due to concern for thrombocytopenia and previous GI bleed. 3. Iron deficiency anemia s/p 10 weekly Venofer infusions (January-March 2022) followed by low iron level and is now being treated with Feraheme. Patient already received 1.5 g of iron I will defer the last dosing in 2 to 3 months 4. History of hepatitis C infection, she was treated with unknown medication(s) in [place] in 2018 5. End-stage liver disease (ESLD) 2/2 hepatitis C infection 2/2 blood transfusion in 1979 6. Complications of ESLD including ascites on diuretics, GI bleed 2/2 portal HTN and esophageal varices s/p ligation, pancytopenia 7. Thrombocytopenia previously responded well to Doptelet (avatrombopag). Continue to monitor Assessment and Plan: Nichole, a female patient with a history of liver disease and recent immunotherapy, presents with recurrent urinary tract infections and elevated liver enzymes. Elevated liver enzymes Assessment: Patient has experienced an elevation in liver enzymes. The cause is unclear, potentially related to either TIPS (transjugular intrahepatic portosystemic shunt) dysfunction or immunotherapy side effects. Recent liver enzyme tests show slow improvement. [facility] consultation recommends continuing current treatment plan. Plan: - Continue current immunotherapy regimen - Continue rifaximin 550 mg PO BID - Avoid anticoagulants to maintain low ammonia levels - Order MRI of liver to assess current status - Monitor liver enzyme levels Recurrent urinary tract infections Assessment: Patient reports two recent episodes of urinary tract infection (UTI), with the first instance presenting with hematuria. The second episode was caught early and treated with the same antibiotic. Given the patient's immunocompromised state due to ongoing treatment, prophylactic measures are warranted to prevent further infections. Plan: - Initiate prophylactic antibiotic therapy with nitrofurantoin (Macrobid) 100 mg PO daily - Educate patient on increased fluid intake, including water and cranberry juice - Instruct patient on proper perineal hygiene: - Use fresh water for cleaning after bowel movements - Avoid using wipes due to potential pH alteration - Recommend use of water bottle or bidet for cleaning - Advise against use of Bactrim due to its potenc RETURN TO CLINIC: BILLING AND COMPLIANCE: I reviewed external records from providers outside my specialty as summarized above. I spent a total of 50 minutes on this patient?s care on the day of their visit excluding time spent related to any billed procedures. This time includes time spent with the patient as well as time spent documenting in the medical record, reviewing patients records and tests, obtaining history, placing orders, communicating with other healthcare professionals, counseling the patient, family or caregiver, and/or care coordination for the diagnoses above. Electronically Signed by: Fransisco Dey MD T: 1:20 PM CC: PCP: Chau Arvizu Referring: Chau Arvizu This document was completed utilizing speech recognition software. Grammatical errors, random word insertions, pronoun errors, and incomplete sentences are an occasional consequence of this system due to software limitations, ambient noise, and hardware issues. Any formal questions or concerns about the content, text or information contained within the body of this dictation should be directly addressed to the provider for clarification.
== END 2024-09-12 23:59 | disposition home or self-care (01) ==
LOC: SCTC 15:28
PROVIDERS: PCP Family Medicine; Referring Provider Family Medicine; Visit Provider Internal Medicine Hematology & Oncology
DX: Z51.11 Encounter for antineoplastic chemotherapy (principal); C22.0 Liver cell carcinoma; D61.818 Other pancytopenia; R74.8 Abnormal levels of other serum enzymes; Z87.440 Personal history of urinary (tract) infections; Z86.19 Personal history of other infectious and parasitic diseases
CPT/HCPCS: 36591; 80053; 82105; 84443; 85025; 96367; 96413; 99212; A4216; J1642; J2405; J7040; J7050; J9173; G0463

== ENCOUNTER 2024-09-17 09:02 | Outpatient (RCR) | payer MEDICAID, SELFPAY ==
[2024-09-16 16:22] LABS: Basophils % (Auto) 1 % (0-2.5); Eosinophils % (Auto) 1 % (0-10); Hemoglobin 12.4 g/dL (12.0-16.0); Immature Granulocytes % (Auto) 0 % (0-0); Lymphocytes # (Auto) 0.4 Thou/mm3 (1.0-4.8); Lymphocytes % (Auto) 28 % (10-50); Mean Corpuscular HGB Conc 34.4 g/dl (31.0-37.0); Mean Corpuscular Hemoglobin 30.9 pg (25.0-35.0); Mean Corpuscular Volume 90 fL (80-100); Monocytes # (Auto) 0.2 Thou/mm3 (0.0-0.8); Monocytes % (Auto) 12 % (0-12); Neutrophils # (Auto) 0.9 Thou/mm3 (1.8-7.7); Neutrophils % (Auto) 58 % (37-80); Nucleated Red Blood Cell % 0 /100 WBC (0); RDW Standard Deviation 48.1 fL (36.4-46.3); Red Blood Count 4.01 Miln/mm3 (4.00-5.20)
[2024-09-16 16:24] LABS: Platelet Count 34 Thou/mm3 (140-440); White Blood Count 1.6 Thou/mm3 (3.6-11.0)
[2024-09-16 16:28] LABS: Slide Review Platelets confirmed
[2024-09-16 16:40] LABS: Alanine Aminotransferase 75 U/L (10-49); Albumin, Serum 2.9 gm/dL (3.4-4.8); Albumin/Globulin Ratio 1.2 (1.2-2.2); Alkaline Phosphatase 195 U/L (46-116); Anion Gap 12 (7-16); Aspartate Amino Transferase 79 U/L (0-34); BUN/Creatinine Ratio 26 Ratio (12-20); Bilirubin,Total 2.4 mg/dL (0.3-1.2); Blood Urea Nitrogen 13 mg/dL (9-23); Calcium 7.8 mg/dL (8.3-10.6); Calcium (Corrected) 8.7 mg/dL (8.5-10.1); Chloride 108 mMol/L (98-107); Creatinine (Component) 0.5 mg/dL (0.6-1.3); Free T4 (Free Thyroxine) 1.09 ng/dL (0.89-1.76); Globulin 2.5 gm/dL (2.3-3.5); Glucose 221 mg/dL (74-106); Osmolality,Calculated 293 (275-295); Potassium 3.7 mMol/L (3.4-5.1); Sodium 144 mMol/L (136-145); Total Protein 5.4 gm/dL (5.7-8.2); eGFR > 60 See Note
[2024-09-17 10:12] LABS: Thyroid Stimulating Hormone 2.83 uIU/mL (0.55-4.78)
[2024-09-17 11:30] LABS: Collection Type, Urine Voided
[2024-09-17 11:44] LABS: Bacteria,Urine Rare; Bilirubin,Urine Negative (Negative); Blood,Urine Negative (Negative); Clarity,Urine Clear (Clear/Hazy); Color,Urine Yellow (Lt Yel-Yel); Glucose, Urine Negative (Negative); Ketones,Urine Negative (Negative); Leukocyte Esterase,Urine Negative (Negative); Nitrite,Urine Negative (Negative); Protein,Urine Negative (Neg - Trace); RBC,Urine 1 /hpf (0-3); Specific Gravity,Urine 1.018 (1.001-1.035); Squamous Epithelial Cell,Urine 3 /hpf (0-5); Urobilinogen,Urine Negative mg/dL (0.0-1.0); WBC,Urine 1 /hpf (0-5)
[2024-09-22 06:39] LABS: T3,Total* 85 ng/dL (76-181)
== END 2024-10-12 23:59 | disposition home or self-care (01) ==
LOC: SCTC 09:02
PROVIDERS: PCP Family Medicine; Referring Provider Family Medicine; Visit Provider Internal Medicine Hematology & Oncology
DX: Z51.11 Encounter for antineoplastic chemotherapy (principal); C22.0 Liver cell carcinoma; I81 Portal vein thrombosis; D50.9 Iron deficiency anemia, unspecified; Z86.19 Personal history of other infectious and parasitic diseases; Z87.440 Personal history of urinary (tract) infections; K72.10 Chronic hepatic failure without coma; R18.8 Other ascites; K76.6 Portal hypertension; I85.10 Secondary esophageal varices without bleeding
CPT/HCPCS: 36591; 80053; 81001; 82105; 84439; 84443; 84480; 85025; 96367; 96368; 96413; A4216; J1642; J2405; J7050; J9173

== ENCOUNTER 2024-11-05 09:03 | Outpatient (RCR) | payer MEDICAID, SELFPAY ==
[2024-10-14 16:10] LABS: Basophils # (Auto) 0.0 Thou/mm3 (0.0-0.2); Basophils % (Auto) 0 % (0-2.5); Eosinophils # (Auto) 0.0 Thou/mm3 (0.0-0.5); Eosinophils % (Auto) 2 % (0-10); Hematocrit 40.9 % (36.0-46.0); Hemoglobin 14.0 g/dL (12.0-16.0); Immature Granulocytes Auto 0.01 Thou/mm3 (0.00-0.00); Lymphocytes # (Auto) 0.5 Thou/mm3 (1.0-4.8); Lymphocytes % (Auto) 24 % (10-50); Mean Corpuscular HGB Conc 34.2 g/dl (31.0-37.0); Mean Corpuscular Hemoglobin 31.3 pg (25.0-35.0); Mean Corpuscular Volume 92 fL (80-100); Monocytes # (Auto) 0.2 Thou/mm3 (0.0-0.8); Monocytes % (Auto) 10 % (0-12); Neutrophils # (Auto) 1.3 Thou/mm3 (1.8-7.7); Neutrophils % (Auto) 64 % (37-80); Nucleated Red Blood Cell # 0.00 Thou/mm3 (0.00-0.00); Nucleated Red Blood Cell % 0 /100 WBC (0); RDW Standard Deviation 46.8 fL (36.4-46.3); Red Blood Count 4.47 Miln/mm3 (4.00-5.20)
[2024-10-14 16:25] LABS: AFP Non-Pregnant 3.70 ng/mL (<8.10)
[2024-10-14 16:28] LABS: Alanine Aminotransferase 88 U/L (10-49); Albumin, Serum 3.1 gm/dL (3.4-4.8); Albumin/Globulin Ratio 1.0 (1.2-2.2); Alkaline Phosphatase 232 U/L (46-116); Anion Gap 7 (7-16); Aspartate Amino Transferase 98 U/L (0-34); BUN/Creatinine Ratio 16 Ratio (12-20); Bilirubin,Total 3.1 mg/dL (0.3-1.2); Blood Urea Nitrogen 11 mg/dL (9-23); Calcium 8.5 mg/dL (8.3-10.6); Calcium (Corrected) 9.2 mg/dL (8.5-10.1); Carbon Dioxide 23.7 mMol/L (20.0-31.0); Chloride 110 mMol/L (98-107); Creatinine (Component) 0.7 mg/dL (0.6-1.3); Globulin 3.0 gm/dL (2.3-3.5); Glucose 294 mg/dL (74-106); Osmolality,Calculated 291 (275-295); Potassium 4.0 mMol/L (3.4-5.1); Sodium 141 mMol/L (136-145); Thyroid Stimulating Hormone 1.02 uIU/mL (0.55-4.78); Total Protein 6.1 gm/dL (5.7-8.2); eGFR > 60 See Note
[2024-10-14 16:31] LABS: Platelet Count 42 Thou/mm3 (140-440); White Blood Count 2.0 Thou/mm3 (3.6-11.0)
[2024-10-14 16:44] LABS: Slide Review Platelets confirmed
[2024-10-22 11:31] LABS: Basophils # (Auto) 0.0 Thou/mm3 (0.0-0.2); Basophils % (Auto) 0 % (0-2.5); Eosinophils # (Auto) 0.0 Thou/mm3 (0.0-0.5); Eosinophils % (Auto) 2 % (0-10); Hematocrit 38.4 % (36.0-46.0); Hemoglobin 13.3 g/dL (12.0-16.0); Immature Granulocytes Auto 0.00 Thou/mm3 (0.00-0.00); Lymphocytes # (Auto) 0.4 Thou/mm3 (1.0-4.8); Lymphocytes % (Auto) 23 % (10-50); Mean Corpuscular HGB Conc 34.6 g/dl (31.0-37.0); Mean Corpuscular Hemoglobin 30.9 pg (25.0-35.0); Mean Corpuscular Volume 89 fL (80-100); Monocytes # (Auto) 0.2 Thou/mm3 (0.0-0.8); Monocytes % (Auto) 9 % (0-12); Neutrophils # (Auto) 1.3 Thou/mm3 (1.8-7.7); Neutrophils % (Auto) 67 % (37-80); Nucleated Red Blood Cell # 0.00 Thou/mm3 (0.00-0.00); Nucleated Red Blood Cell % 0 /100 WBC (0); RDW Standard Deviation 45.4 fL (36.4-46.3); Red Blood Count 4.30 Miln/mm3 (4.00-5.20)
[2024-10-22 11:33] LABS: Platelet Count 32 Thou/mm3 (140-440); White Blood Count 1.9 Thou/mm3 (3.6-11.0)
[2024-10-22 11:52] LABS: AFP Non-Pregnant 4.00 ng/mL (<8.10)
[2024-10-22 11:54] LABS: Alanine Aminotransferase 93 U/L (10-49); Albumin, Serum 3.0 gm/dL (3.4-4.8); Albumin/Globulin Ratio 1.0 (1.2-2.2); Alkaline Phosphatase 221 U/L (46-116); Anion Gap 9 (7-16); Aspartate Amino Transferase 84 U/L (0-34); BUN/Creatinine Ratio 13 Ratio (12-20); Bilirubin,Direct 1.2 mg/dL (0.0-0.3); Bilirubin,Indirect 1.9 mg/dL (0.0-1.1); Bilirubin,Total 3.1 mg/dL (0.3-1.2); Blood Urea Nitrogen 8 mg/dL (9-23); Calcium 8.5 mg/dL (8.3-10.6); Calcium (Corrected) 9.3 mg/dL (8.5-10.1); Carbon Dioxide 25.8 mMol/L (20.0-31.0); Chloride 107 mMol/L (98-107); Creatinine (Component) 0.6 mg/dL (0.6-1.3); Globulin 3.0 gm/dL (2.3-3.5); Glucose 184 mg/dL (74-106); Osmolality,Calculated 286 (275-295); Potassium 3.5 mMol/L (3.4-5.1); Sodium 142 mMol/L (136-145); Thyroid Stimulating Hormone 2.35 uIU/mL (0.55-4.78); Total Protein 6.0 gm/dL (5.7-8.2); eGFR > 60 See Note
[2024-10-22 13:35] LABS: Slide Review Platelets confirmed
[2024-10-28 12:50] LABS: Basophils # (Auto) 0.0 Thou/mm3 (0.0-0.2); Basophils % (Auto) 1 % (0-2.5); Eosinophils # (Auto) 0.0 Thou/mm3 (0.0-0.5); Eosinophils % (Auto) 1 % (0-10); Hematocrit 39.8 % (36.0-46.0); Hemoglobin 13.9 g/dL (12.0-16.0); Immature Granulocytes Auto 0.01 Thou/mm3 (0.00-0.00); Lymphocytes # (Auto) 0.8 Thou/mm3 (1.0-4.8); Lymphocytes % (Auto) 37 % (10-50); Mean Corpuscular HGB Conc 34.9 g/dl (31.0-37.0); Mean Corpuscular Hemoglobin 31.2 pg (25.0-35.0); Mean Corpuscular Volume 89 fL (80-100); Monocytes # (Auto) 0.2 Thou/mm3 (0.0-0.8); Monocytes % (Auto) 12 % (0-12); Neutrophils # (Auto) 1.0 Thou/mm3 (1.8-7.7); Neutrophils % (Auto) 49 % (37-80); Nucleated Red Blood Cell # 0.00 Thou/mm3 (0.00-0.00); Nucleated Red Blood Cell % 0 /100 WBC (0); RDW Standard Deviation 45.5 fL (36.4-46.3); Red Blood Count 4.46 Miln/mm3 (4.00-5.20)
[2024-10-28 12:54] LABS: Platelet Count 34 Thou/mm3 (140-440); White Blood Count 2.1 Thou/mm3 (3.6-11.0)
[2024-10-28 13:07] LABS: Bilirubin,Direct 1.0 mg/dL (0.0-0.3)
[2024-10-28 13:09] LABS: Bilirubin,Direct 1.1 mg/dL (0.0-0.3); Bilirubin,Indirect 1.9 mg/dL (0.0-1.1); Bilirubin,Total 3.0 mg/dL (0.3-1.2)
[2024-10-28 13:10] LABS: Alanine Aminotransferase 53 U/L (10-49); Albumin, Serum 3.1 gm/dL (3.4-4.8); Albumin/Globulin Ratio 1.0 (1.2-2.2); Alkaline Phosphatase 223 U/L (46-116); Anion Gap 10 (7-16); Aspartate Amino Transferase 50 U/L (0-34); BUN/Creatinine Ratio 14 Ratio (12-20); Bilirubin,Total 3.0 mg/dL (0.3-1.2); Blood Urea Nitrogen 7 mg/dL (9-23); Calcium 8.4 mg/dL (8.3-10.6); Calcium (Corrected) 9.1 mg/dL (8.5-10.1); Carbon Dioxide 23.4 mMol/L (20.0-31.0); Chloride 108 mMol/L (98-107); Creatinine (Component) 0.5 mg/dL (0.6-1.3); Globulin 3.0 gm/dL (2.3-3.5); Glucose 71 mg/dL (74-106); Osmolality,Calculated 277 (275-295); Potassium 3.8 mMol/L (3.4-5.1); Sodium 141 mMol/L (136-145); Thyroid Stimulating Hormone 3.07 uIU/mL (0.55-4.78); Total Protein 6.1 gm/dL (5.7-8.2); eGFR > 60 See Note
[2024-10-28 15:43] LABS: Slide Review Platelets confirmed
[2024-11-04 11:24] LABS: Basophils # (Auto) 0.0 Thou/mm3 (0.0-0.2); Basophils % (Auto) 1 % (0-2.5); Eosinophils # (Auto) 0.0 Thou/mm3 (0.0-0.5); Eosinophils % (Auto) 1 % (0-10); Hematocrit 39.1 % (36.0-46.0); Hemoglobin 13.8 g/dL (12.0-16.0); Immature Granulocytes Auto 0.01 Thou/mm3 (0.00-0.00); Lymphocytes # (Auto) 0.4 Thou/mm3 (1.0-4.8); Lymphocytes % (Auto) 19 % (10-50); Mean Corpuscular HGB Conc 35.3 g/dl (31.0-37.0); Mean Corpuscular Hemoglobin 31.4 pg (25.0-35.0); Mean Corpuscular Volume 89 fL (80-100); Monocytes # (Auto) 0.2 Thou/mm3 (0.0-0.8); Monocytes % (Auto) 9 % (0-12); Neutrophils # (Auto) 1.3 Thou/mm3 (1.8-7.7); Neutrophils % (Auto) 70 % (37-80); Nucleated Red Blood Cell # 0.00 Thou/mm3 (0.00-0.00); Nucleated Red Blood Cell % 0 /100 WBC (0); RDW Standard Deviation 45.6 fL (36.4-46.3); Red Blood Count 4.40 Miln/mm3 (4.00-5.20)
[2024-11-04 11:35] LABS: Platelet Count 35 Thou/mm3 (140-440); White Blood Count 1.9 Thou/mm3 (3.6-11.0)
[2024-11-04 11:53] LABS: Slide Review Platelets confirmed
[2024-11-04 11:57] LABS: AFP Non-Pregnant 3.50 ng/mL (<8.10)
[2024-11-04 12:02] LABS: Bilirubin,Direct 1.1 mg/dL (0.0-0.3); Bilirubin,Indirect 1.6 mg/dL (0.0-1.1); Bilirubin,Total 2.7 mg/dL (0.3-1.2)
[2024-11-04 12:06] LABS: Alanine Aminotransferase 69 U/L (10-49); Albumin, Serum 3.2 gm/dL (3.4-4.8); Albumin/Globulin Ratio 1.1 (1.2-2.2); Alkaline Phosphatase 176 U/L (46-116); Anion Gap 11 (7-16); Aspartate Amino Transferase 80 U/L (0-34); BUN/Creatinine Ratio 15 Ratio (12-20); Bilirubin,Total 2.7 mg/dL (0.3-1.2); Blood Urea Nitrogen 9 mg/dL (9-23); Calcium 8.3 mg/dL (8.3-10.6); Calcium (Corrected) 8.9 mg/dL (8.5-10.1); Carbon Dioxide 22.2 mMol/L (20.0-31.0); Chloride 109 mMol/L (98-107); Creatinine (Component) 0.6 mg/dL (0.6-1.3); Globulin 2.9 gm/dL (2.3-3.5); Glucose 127 mg/dL (74-106); Osmolality,Calculated 283 (275-295); Potassium 3.2 mMol/L (3.4-5.1); Sodium 142 mMol/L (136-145); Thyroid Stimulating Hormone 1.87 uIU/mL (0.55-4.78); Total Protein 6.1 gm/dL (5.7-8.2); eGFR > 60 See Note
== END 2024-11-12 23:59 | disposition home or self-care (01) ==
LOC: SCTC 09:03
PROVIDERS: PCP Family Medicine; Referring Provider Family Medicine; Visit Provider Internal Medicine Hematology & Oncology
DX: Z51.11 Encounter for antineoplastic chemotherapy (principal); C22.0 Liver cell carcinoma; I81 Portal vein thrombosis; D50.9 Iron deficiency anemia, unspecified; I85.00 Esophageal varices without bleeding; D61.818 Other pancytopenia; Z87.440 Personal history of urinary (tract) infections; R74.8 Abnormal levels of other serum enzymes; Z86.19 Personal history of other infectious and parasitic diseases; Z87.19 Personal history of other diseases of the digestive system
CPT/HCPCS: 36591; 80053; 82105; 82247; 82248; 84443; 85025; 96360; 96367; 96413; A4216; J1642; J2405; J7030; J7050; J9173

== ENCOUNTER 2024-12-03 08:36 | Outpatient (RCR) | payer MEDICAID, SELFPAY ==
[2024-12-02 15:33] LABS: Basophils # (Auto) 0.0 Thou/mm3 (0.0-0.2); Basophils % (Auto) 0 % (0-2.5); Eosinophils # (Auto) 0.0 Thou/mm3 (0.0-0.5); Eosinophils % (Auto) 1 % (0-10); Hematocrit 41.5 % (36.0-46.0); Hemoglobin 14.2 g/dL (12.0-16.0); Immature Granulocytes Auto 0.01 Thou/mm3 (0.00-0.00); Lymphocytes # (Auto) 0.5 Thou/mm3 (1.0-4.8); Lymphocytes % (Auto) 28 % (10-50); Mean Corpuscular HGB Conc 34.2 g/dl (31.0-37.0); Mean Corpuscular Hemoglobin 31.6 pg (25.0-35.0); Mean Corpuscular Volume 92 fL (80-100); Monocytes # (Auto) 0.2 Thou/mm3 (0.0-0.8); Monocytes % (Auto) 10 % (0-12); Neutrophils # (Auto) 1.1 Thou/mm3 (1.8-7.7); Neutrophils % (Auto) 60 % (37-80); Nucleated Red Blood Cell # 0.00 Thou/mm3 (0.00-0.00); Nucleated Red Blood Cell % 0 /100 WBC (0); RDW Standard Deviation 47.1 fL (36.4-46.3); Red Blood Count 4.50 Miln/mm3 (4.00-5.20); White Blood Count 1.7 Thou/mm3 (3.6-11.0)
[2024-12-02 15:50] LABS: Platelet Count 38 Thou/mm3 (140-440)
[2024-12-02 16:06] LABS: Bilirubin,Direct 1.1 mg/dL (0.0-0.3); Bilirubin,Indirect 1.7 mg/dL (0.0-1.1); Bilirubin,Total 2.8 mg/dL (0.3-1.2)
[2024-12-02 16:08] LABS: Alanine Aminotransferase 72 U/L (10-49); Albumin, Serum 3.1 gm/dL (3.4-4.8); Albumin/Globulin Ratio 1.1 (1.2-2.2); Alkaline Phosphatase 221 U/L (46-116); Anion Gap 10 (7-16); Aspartate Amino Transferase 68 U/L (0-34); BUN/Creatinine Ratio 15 Ratio (12-20); Bilirubin,Total 2.8 mg/dL (0.3-1.2); Blood Urea Nitrogen 9 mg/dL (9-23); Calcium 8.8 mg/dL (8.3-10.6); Calcium (Corrected) 9.5 mg/dL (8.5-10.1); Carbon Dioxide 23.0 mMol/L (20.0-31.0); Chloride 107 mMol/L (98-107); Creatinine (Component) 0.6 mg/dL (0.6-1.3); Globulin 2.9 gm/dL (2.3-3.5); Glucose 294 mg/dL (74-106); Osmolality,Calculated 289 (275-295); Potassium 4.0 mMol/L (3.4-5.1); Sodium 140 mMol/L (136-145); Thyroid Stimulating Hormone 0.86 uIU/mL (0.55-4.78); Total Protein 6.0 gm/dL (5.7-8.2); eGFR > 60 See Note
[2024-12-02 16:25] LABS: Slide Review Platelets confirmed
[2024-12-02 16:40] LABS: Path Review Blood Smear Sent to Pathologist
== END 2024-12-13 23:59 | disposition home or self-care (01) ==
LOC: SCTC 08:36
PROVIDERS: PCP Family Medicine; Referring Provider Family Medicine; Visit Provider Internal Medicine Hematology & Oncology
DX: Z51.11 Encounter for antineoplastic chemotherapy (principal); C22.0 Liver cell carcinoma; Z87.440 Personal history of urinary (tract) infections; Z86.19 Personal history of other infectious and parasitic diseases; I81 Portal vein thrombosis; D50.9 Iron deficiency anemia, unspecified
CPT/HCPCS: 36591; 80053; 82247; 82248; 84443; 85025; 96367; 96413; A4216; J1642; J2405; J7050; J9173

== ENCOUNTER → 2024-12-30 | Outpatient (CLI) | payer MEDICAID, SELFPAY ==
[2024-12-30 11:14] LABS: Basophils # (Auto) 0.0 Thou/mm3 (0.0-0.2); Basophils % (Auto) 1 % (0-2.5); Eosinophils # (Auto) 0.1 Thou/mm3 (0.0-0.5); Eosinophils % (Auto) 3 % (0-10); Hematocrit 43.1 % (36.0-46.0); Hemoglobin 14.5 g/dL (12.0-16.0); Immature Granulocytes Auto 0.00 Thou/mm3 (0.00-0.00); Lymphocytes # (Auto) 0.7 Thou/mm3 (1.0-4.8); Lymphocytes % (Auto) 35 % (10-50); Mean Corpuscular HGB Conc 33.6 g/dl (31.0-37.0); Mean Corpuscular Hemoglobin 31.1 pg (25.0-35.0); Mean Corpuscular Volume 93 fL (80-100); Monocytes # (Auto) 0.2 Thou/mm3 (0.0-0.8); Monocytes % (Auto) 10 % (0-12); Neutrophils # (Auto) 1.0 Thou/mm3 (1.8-7.7); Neutrophils % (Auto) 51 % (37-80); Nucleated Red Blood Cell # 0.00 Thou/mm3 (0.00-0.00); Nucleated Red Blood Cell % 0 /100 WBC (0); RDW Standard Deviation 45.9 fL (36.4-46.3); Red Blood Count 4.66 Miln/mm3 (4.00-5.20); White Blood Count 1.9 Thou/mm3 (3.6-11.0)
[2024-12-30 11:28] LABS: AFP Non-Pregnant 3.90 ng/mL (<8.10)
[2024-12-30 11:32] LABS: Alanine Aminotransferase 82 U/L (10-49); Albumin, Serum 3.0 gm/dL (3.4-4.8); Albumin/Globulin Ratio 1.0 (1.2-2.2); Alkaline Phosphatase 219 U/L (46-116); Anion Gap 7 (7-16); Aspartate Amino Transferase 82 U/L (0-34); BUN/Creatinine Ratio 8 Ratio (12-20); Bilirubin,Direct 1.0 mg/dL (0.0-0.3); Bilirubin,Total 2.8 mg/dL (0.3-1.2); Blood Urea Nitrogen 5 mg/dL (9-23); Calcium 8.6 mg/dL (8.3-10.6); Calcium (Corrected) 9.4 mg/dL (8.5-10.1); Carbon Dioxide 26.0 mMol/L (20.0-31.0); Chloride 109 mMol/L (98-107); Creatinine (Component) 0.6 mg/dL (0.6-1.3); Globulin 2.9 gm/dL (2.3-3.5); Glucose 112 mg/dL (74-106); Osmolality,Calculated 281 (275-295); Potassium 4.1 mMol/L (3.4-5.1); Sodium 142 mMol/L (136-145); Thyroid Stimulating Hormone 0.88 uIU/mL (0.55-4.78); Total Protein 5.9 gm/dL (5.7-8.2); eGFR > 60 See Note
[2024-12-30 12:18] LABS: Platelet Count 35 Thou/mm3 (140-440)
[2024-12-30 12:35] LABS: Slide Review Platelets confirmed
[2025-01-04 09:16] LABS: T3,Total* 64 ng/dL (76-181)
== END | disposition home or self-care (01) ==
LOC: SCTO 10:16
PROVIDERS: PCP Family Medicine; Referring Provider Internal Medicine Hematology & Oncology; Visit Provider Internal Medicine Hematology & Oncology
DX: D61.818 Other pancytopenia (principal); D50.9 Iron deficiency anemia, unspecified; C22.0 Liver cell carcinoma
CPT/HCPCS: 36415; 80053; 82105; 82248; 84443; 84480; 85025

== ENCOUNTER 2025-01-04 11:47 | Outpatient (RCR) | payer MEDICAID, SELFPAY ==
--- NOTE | 2025-01-10 22:56 | CTCFLWUP_ITS ---
Patient: NICHOLE FITZGERALD : 1960 Page 6 of 8 FOLLOW UP NOTE DATE OF SERVICE: 01/04/2025 NAME: NICHOLE FITZGERALD ACCOUNT: [id number] : 1960 AGE: 64 INTERVAL HISTORY: Subjective: Chief Complaint Elevated liver enzymes, recurrent urinary tract infections History of Present Illness Nichole, a female patient with a history of liver disease and recent immunotherapy treatment, presents for follow-up regarding elevated liver enzymes and recurrent urinary tract infections. The patient reports a history of elevated liver enzymes, which have been slowly improving. She has been taking rifaximin 550 mg twice daily as part of her treatment regimen. The patient also mentions experiencing two episodes of urinary tract infections recently. The first episode was severe, with the patient noting blood in her urine. The second time, she sought medical attention promptly upon noticing symptoms, and was prescribed the same antibiotics as before. The patient does not report any current symptoms related to her liver condition or urinary tract infections. She mentions having seen a doctor at [facility] via videoconference recently, who detected the urinary tract infection and prescribed medication. Medications and Supplements - Rifaximin 550 mg by mouth twice daily - Used to keep ammonia low - Bactrim - Discontinued. Was used for urinary tract infection. - Macrobid 100 mg by mouth once daily - Used prophylactically for urinary tract infections Review of Systems Genitourinary: Positive for urinary tract infection, history of hematuria. Negative for vaginal dryness. Objective: Laboratory, Imaging, and Diagnostic Test Results - Liver enzymes: Elevated, slowly improving - Urinalysis: Positive for urinary tract infection (performed twice, dates not specified) yONCOLOGY HISTORY: ONCOLOGY HISTORY: DIAGNOSIS: Iron deficiency anemia, unspecified [ICD10] D50.9 Iron deficiency anemia, unspecified [ICD10] D50.9 DATE OF DIAGNOSIS: STAGE/TNM: TREATMENT HISTORY: Care?Plan Start?Date Cycle Day Intent VENOfer?200mg?IV?wkly?for?10?weeks 03/12/2022 1 70 Palliative Atezolizumab?plus?Avastin 06/21/2022 1 21 Palliative ATEZolizumab?1 12/19/2022 1 21 Palliative INJECTAFER 12/13/2022 1 14 Palliative Tremelimumab?Durvalumab 03/12/2023 1 28 Palliative Durvalumab?maintenance?cholangiocarcinoma?regimen?2 11/05/2023 1 28 Palliative FERAheme?4?doses 02/17/2024 1 28 Maintenance HISTORY OF PRESENT ILLNESS: Nichole Gomez is a 64-year-old S[place] speaking female referred to hematology clinic to evaluate the cause for pancytopenia. Patient was previously seen at [facility] who did not feel she was a candidate for surgical resection, and subsequently referred for radioembolization (Y90) ablation therapy at [facility] in [place], who, per daughter, then referred patient to our cancer center for immunotherapy to see if the tumor could be shrunk first. 1980s: Patient had multiple blood transfusions in [place] for hemorrhage. 2005: Patient was diagnosed with hepatitis C, cirrhosis of the liver and thrombocytopenia. 2018: She was treated for hepatitis C with injections. Patient does not remember the names of the drugs. 2019: Patient had colonoscopy done 08/24/2021: WBC 2.3, ANC 1.2, hemoglobin 10.6, MCV 71, platelet count 52,000 peripheral smear showed few teardrop cells, ovalocytes, schistocytes 01/03/2022: AFP 47.1, HIV negative, ferritin 5 HCV RT-PCR quantitative negative hemoglobin 9.8, MCV 74, platelets 45,000. 02/05/2022: Platelet count 60,000. 02/21/2022: MRI of the abdomen with and without contrast? 05/25/2022: CT scan of the chest, abdomen and pelvis with IV contrast: 07/12/2022: AFP level 231 07/23/2022: Patient reports feeling good, denies complaints except concern about a 1cm round purpuric scaley lesion on distal left arm. She reports tolerating her first two atezolizumab and bevacizumab infusions on 06/21/2022 and 07/12/2022 very well with no symptoms, next session is planned for 08/02/2022. She has been getting them via RUE PICC line, as her platelets were deemed too low for port-a-cath placement. Patient has previously received avatrombopag to raise platelet levels, however this must be balanced against the risk of thrombosis. A CT scan on 06/13/2022 showed extensive tumor thrombus in the portal venous system, for which patient was started on treatment dose Eliquis. However, on this visit patient?s daughter reports that the [facility] tumor board deemed anticoagulation too risky given patient?s thrombocytopenia and hx GI bleed and discontinued it (we will request this documentation from them). Patient?s daughter also reports that on 06/19/2022, patient?s lymph node was biopsied (we will request these records as well). Dr Haines called and spoke with IR Dr Reed by phone on 07/23/2022, who agrees to attempt chemo-port placement as long as patient has 2 units of platelet pheresis running right before. CBC/PT/INR will also need to be redrawn beforehand. It will be coordinated via Elisa at his laboratory mechanical technician. 09/13/2022 AFP 2.7 06/19/2022 pathology report came through from 06/19/2022: 09/25/2022: CT 10/18/2022: MRI abdomen w/o contrast 10/29/2022: AFP 3.30, bilirubin 3.5 11/13/2022 - 11/19/2022: Patient was admitted to the hospital for upper GI bleeding from esophageal varices. She had banding done. 12/06/2022: T. bili is 2.7, AFP is 3.80. 12/20/2022 - 01/01/2023: Ms. Fitzgerald was admitted to [facility] because of bleeding varicose veins as well as hypotension requiring pressor support. 01/10/2023: MRI abdomen with and without contrast, MRI abdomen without contrast MRCP? 03/12/2023: Ms. Fitzgerald is started on tremelimumab and durvalumab. 05/23/2023: Ms. Fitzgerald was admitted to [facility] due to upper GI bleeding from esophageal varices. She had banding done in the hospital by Dr. Garland. Currently she is being evaluated for TIPS procedure later this week in [place] by Dr. Snyder. 08/30/2023: MRI of the abdomen 12/12/2023 MRI liver impression Bob RADS category LR M DIV based on 02/21/2022 appearance and resuming noted local regional therapy for the dominant lesion in segment 4A oblique 8 although there is central hypointense area that appears to be relatively nonviable tumor there is again a surrounding area of ill-defined hyperenhancement which is likely viable tumor. Focus arterial enhancement along the left inferior aspect described on 01/10/2023 has not recently changed. Observation is likely not significantly changed from 05/14/2023 and 01/10/2023 the other previously described liver observation has been downgraded to Bob RADS category alert to. Extensive thrombus in the portal venous system is not def initely changed OTHER MEDICAL HISTORY/CONDITIONS: FAMILY HISTORY: ?Clone Family Hx? 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 albuterol - 90 mcg/actuation As directed 2. atorvastatin - 20 mg 1 tab Daily 3. azithromycin - 250 mg 6 tab Daily 4. lactulose - 20 gram 1 Three times a day 5. Lantus Solostar - 100 unit/mL (3 mL) 35 Unit Twice a Day 6. nitrofurantoin macrocrystal - 100 mg 1 Capsule Daily 7. pantoprazole - 40 mg 1 Daily 8. Synthroid - 50 mcg 1 tab As directed 9. Xifaxan - 550 mg Twice a Day 10. ZyrTEC - 10 mg 1 Capsule Daily?Palabra Meds? Medications Last Reconciled by Elisa Gresham MD on 01/04/2025 ALLERGIES: No Known Drug Allergies REVIEW OF SYSTEMS: A complete 14-point review of systems was performed and is negative except as noted in interval history. PHYSICAL EXAMINATION:?CloneBlock PE? VITAL SIGNS: Temperature?98.3, B/P?116/64, Oxygen?Saturation?94% Weight?175?lbs (Change?since?12/31/24:?-0.2?lbs) PAIN: 0 - No pain GENERAL APPEARANCE: Appears well, in no apparent distress, appropriately interactive. HEENT: Normocephalic, no temporal wasting, normal conjunctiva, no scleral icterus, normal hearing, lips without lesions, neck normal range of motion. CARDIOVASCULAR: Not assessed. PULMONARY: Normal respiratory effort, no respiratory distress or use of accessory muscles, speaking in full sentences, no tachypnea. EXTREMITIES: No pedal edema or cyanosis. SKIN: Normal skin appearance. NEUROLOGIC: Alert and oriented x4. PSHYCHIATRIC: Appropriate affect, mood normal, behavior normal, intact thought and speech. LABORATORY DATA: I have personally reviewed and interpreted each of the patient?s relevant lab tests, abnormal findings are below: Date 12/02/24 12/03/24 12/30/24 ??WHITE?BLOOD?COUNT?(Thou/mm3) ? ? 1.9?L ??RED?BLOOD?COUNT?(Miln/mm3) ? ? 4.66 ??HEMOGLOBIN?(gm/dl) ? ? 14.5 ??HEMATOCRIT?(%) ? ? 43.1 ??PLATELET?COUNT?(Thou/mm3) ? ? 35?L ??NEUTROPHILS?%,?AUTO?(%) ? ? 51 ??LYMPH?%,?AUTO?(%) ? ? 35 ??NEUTROPHILS,?AUTO?(Thou/mm3) ? ? 1.0?L ??GLUCOSE,RANDOM?(mg/dL) ? 168 112?H ??BLOOD?UREA?NITROGEN?(mg/dL) ? ? 5?L ??CREATININE?(mg/dL) ? ? 0.60 ??SODIUM?(mmol/L) ? ? 142 ??POTASSIUM?(mmol/L) ? ? 4.1 ??CHLORIDE?(mmol/L) ? ? 109?H ??CrCl?(CandG)?(ml/min) ? ? 117.62 ??AST/SGOT?(Unit/L) ? ? 82?H ??ALT/SGPT?(Unit/L) ? ? 82?H ??ALKALINE?PHOSPHATASE?(Unit/L) ? ? 219?H ??BILIRUBIN,?TOTAL?(mg/dL) 2.8?H ? 2.8?H ??PROTEIN?TOTAL?(gm/dl) ? ? 5.9 ??ALBUMIN,?SERUM?(gm/dl) ? ? 3.0?L ??GLOBULIN?(gm/dl) ? ? 2.9 ??ALBUMIN/GLOBULIN?RATIO ? ? 1.0?L ??CALCIUM,?SERUM?(mg/dL) ? ? 8.6 ??CALCIUM?SERUM?(CORRECTED)?(mg/dL) ? ? 9.4 ASSESSMENT/PLAN:?Radha Dey Assessment/Plan? Hepatocellular tumor Patient received first dose of durvalumab and tremelimumab and now on maintenance durvalumab recently Ms. Fitzgerald had follow-up visit with Dr. Farmer of [facility] who recommended continuing durvalumab Ms. Fitzgerald is currently on single agent dose of durvalumab. She is tolerating it reasonably well.. September 2024 MRI is negative This artifacts are likely from TIPS procedure. She had banding done by Dr. Garland. She completed TIPS procedure in [place]. She is on durvalumab. She received 1 dose of tremelimumab and with [facility] prior to that. Naterra is negative Reassured patient Advised to continue follow-up with [facility] Continue current therapy 2. Portal vein thrombus --CT scans showed right lobe liver lesion as well as splenomegaly, portal hypertension, mild ascites as well as extensive para-aortic, paracaval lymphadenopathy. CT scan on 06/13/2022 scan also showed extensive tumor thrombus in the portal venous system for which treatment-dose Eliquis was previously initiated, and stopped per [facility] tumor board due to concern for thrombocytopenia and previous GI bleed. 3 History of hepatitis C infection, she was treated with unknown medication(s) in [place] in 2018 ORDERS: Order # Description [id number] MRI + With W/O Contrast [id number] Comprehensive Metabolic Panel - 12 + CBC with Auto Diff + CA [id number] [id number] MD Follow Up 2 Months RETURN TO CLINIC: I reviewed the diagnosis, prognosis, and recommended treatment/procedure options with the patient (and/or their legal sales representative adding machines), including the potential benefits, risks, side effects and alternative therapies. We also discussed the option of no treatment and the possibility of clinical trial participation, if applicable. All questions were addressed, and they demonstrated understanding. They provided informed consent to proceed with the proposed plan of care. BILLING AND COMPLIANCE: I reviewed external records from providers outside my specialty as summarized above. I spent a total of 50 minutes on this patient?s care on the day of their visit excluding time spent related to any billed procedures. This time includes time spent with the patient as well as time spent documenting in the medical record, reviewing patients records and tests, obtaining history, placing orders, communicating with other healthcare professionals, counseling the patient, family or caregiver, and/or care coordination for the diagnoses above. Electronically Signed by: Fransisco Dey MD T: 10:54 PM CC: PCP: Chau Arvizu Referring: Chau Arvizu This document was completed utilizing speech recognition software. Grammatical errors, random word insertions, pronoun errors, and incomplete sentences are an occasional consequence of this system due to software limitations, ambient noise, and hardware issues. Any formal questions or concerns about the content, text or information contained within the body of this dictation should be directly addressed to the provider for clarification.
== END 2025-01-12 23:59 | disposition home or self-care (01) ==
LOC: SCTC 11:47
PROVIDERS: PCP Family Medicine; Referring Provider Family Medicine; Visit Provider Internal Medicine Hematology & Oncology
DX: Z51.11 Encounter for antineoplastic chemotherapy (principal); C22.0 Liver cell carcinoma; I81 Portal vein thrombosis; R16.1 Splenomegaly, not elsewhere classified; K76.6 Portal hypertension; R18.8 Other ascites; Z86.19 Personal history of other infectious and parasitic diseases; Z87.440 Personal history of urinary (tract) infections
CPT/HCPCS: 96367; 96413; 99212; A4216; J1642; J2405; J3490; J7030; J7050; J9173; G0463

== ENCOUNTER 2025-01-28 10:32 | Outpatient (RCR) | payer MEDICAID, SELFPAY ==
[2025-01-27 16:12] LABS: Basophils # (Auto) 0.0 Thou/mm3 (0.0-0.2); Basophils % (Auto) 1 % (0-2.5); Eosinophils # (Auto) 0.0 Thou/mm3 (0.0-0.5); Eosinophils % (Auto) 2 % (0-10); Hematocrit 38.1 % (36.0-46.0); Hemoglobin 12.9 g/dL (12.0-16.0); Immature Granulocytes Auto 0.00 Thou/mm3 (0.00-0.00); Lymphocytes # (Auto) 0.6 Thou/mm3 (1.0-4.8); Lymphocytes % (Auto) 29 % (10-50); Mean Corpuscular HGB Conc 33.9 g/dl (31.0-37.0); Mean Corpuscular Hemoglobin 30.9 pg (25.0-35.0); Mean Corpuscular Volume 91 fL (80-100); Monocytes # (Auto) 0.2 Thou/mm3 (0.0-0.8); Monocytes % (Auto) 10 % (0-12); Neutrophils # (Auto) 1.2 Thou/mm3 (1.8-7.7); Neutrophils % (Auto) 59 % (37-80); Nucleated Red Blood Cell # 0.00 Thou/mm3 (0.00-0.00); Nucleated Red Blood Cell % 0 /100 WBC (0); RDW Standard Deviation 48.3 fL (36.4-46.3); Red Blood Count 4.18 Miln/mm3 (4.00-5.20); White Blood Count 2.0 Thou/mm3 (3.6-11.0)
[2025-01-27 16:28] LABS: AFP Non-Pregnant 3.40 ng/mL (<8.10)
[2025-01-27 16:30] LABS: Bilirubin,Direct 1.1 mg/dL (0.0-0.3); Bilirubin,Indirect 1.3 mg/dL (0.0-1.1); Bilirubin,Total 2.4 mg/dL (0.3-1.2)
[2025-01-27 16:33] LABS: Alanine Aminotransferase 57 U/L (10-49); Albumin, Serum 3.0 gm/dL (3.4-4.8); Albumin/Globulin Ratio 1.1 (1.2-2.2); Alkaline Phosphatase 186 U/L (46-116); Anion Gap 8 (7-16); Aspartate Amino Transferase 60 U/L (0-34); BUN/Creatinine Ratio 16 Ratio (12-20); Bilirubin,Total 2.4 mg/dL (0.3-1.2); Blood Urea Nitrogen 8 mg/dL (9-23); Calcium 8.4 mg/dL (8.3-10.6); Calcium (Corrected) 9.2 mg/dL (8.5-10.1); Carbon Dioxide 23.7 mMol/L (20.0-31.0); Chloride 109 mMol/L (98-107); Creatinine (Component) 0.5 mg/dL (0.6-1.3); Globulin 2.7 gm/dL (2.3-3.5); Glucose 163 mg/dL (74-106); Osmolality,Calculated 283 (275-295); Potassium 3.7 mMol/L (3.4-5.1); Sodium 141 mMol/L (136-145); Thyroid Stimulating Hormone 2.35 uIU/mL (0.55-4.78); Total Protein 5.7 gm/dL (5.7-8.2); eGFR > 60 See Note
[2025-01-27 16:52] LABS: Platelet Count 37 Thou/mm3 (140-440)
[2025-01-27 17:25] LABS: Slide Review Platelets confirmed
[2025-02-02 06:29] LABS: CA 19-9 Antigen* 54 U/mL (<34)
== END 2025-02-12 23:59 | disposition home or self-care (01) ==
LOC: SCTC 10:32
PROVIDERS: PCP Family Medicine; Referring Provider Family Medicine; Visit Provider Internal Medicine Hematology & Oncology
DX: Z51.11 Encounter for antineoplastic chemotherapy (principal); C22.0 Liver cell carcinoma; Z86.19 Personal history of other infectious and parasitic diseases
CPT/HCPCS: 36591; 80053; 82105; 82247; 82248; 84443; 85025; 86301; 96367; 96413; A4216; J1642; J2405; J3490; J7030; J7050; J9173

== ENCOUNTER 2025-03-09 08:04 | Outpatient (RCR) | payer MEDICAID, SELFPAY ==
[2025-02-24 16:37] LABS: Basophils # (Auto) 0.0 Thou/mm3 (0.0-0.2); Basophils % (Auto) 1 % (0-2.5); Eosinophils # (Auto) 0.1 Thou/mm3 (0.0-0.5); Eosinophils % (Auto) 3 % (0-10); Hematocrit 39.6 % (36.0-46.0); Hemoglobin 13.4 g/dL (12.0-16.0); Immature Granulocytes Auto 0.00 Thou/mm3 (0.00-0.00); Lymphocytes # (Auto) 0.6 Thou/mm3 (1.0-4.8); Lymphocytes % (Auto) 31 % (10-50); Mean Corpuscular HGB Conc 33.8 g/dl (31.0-37.0); Mean Corpuscular Hemoglobin 30.9 pg (25.0-35.0); Mean Corpuscular Volume 91 fL (80-100); Monocytes # (Auto) 0.2 Thou/mm3 (0.0-0.8); Monocytes % (Auto) 9 % (0-12); Neutrophils # (Auto) 1.1 Thou/mm3 (1.8-7.7); Neutrophils % (Auto) 56 % (37-80); Nucleated Red Blood Cell # 0.00 Thou/mm3 (0.00-0.00); Nucleated Red Blood Cell % 0 /100 WBC (0); RDW Standard Deviation 48.6 fL (36.4-46.3); Red Blood Count 4.34 Miln/mm3 (4.00-5.20); White Blood Count 1.9 Thou/mm3 (3.6-11.0)
[2025-02-24 17:01] LABS: AFP Non-Pregnant 3.30 ng/mL (<8.10)
[2025-02-24 17:03] LABS: Bilirubin,Direct 1.2 mg/dL (0.0-0.3); Bilirubin,Indirect 1.6 mg/dL (0.0-1.1); Bilirubin,Total 2.8 mg/dL (0.3-1.2)
[2025-02-24 17:04] LABS: Platelet Count 36 Thou/mm3 (140-440)
[2025-02-24 17:06] LABS: Alanine Aminotransferase 58 U/L (10-49); Albumin, Serum 3.1 gm/dL (3.4-4.8); Albumin/Globulin Ratio 1.1 (1.2-2.2); Alkaline Phosphatase 218 U/L (46-116); Anion Gap 8 (7-16); Aspartate Amino Transferase 67 U/L (0-34); BUN/Creatinine Ratio 12 Ratio (12-20); Bilirubin,Total 2.8 mg/dL (0.3-1.2); Blood Urea Nitrogen 7 mg/dL (9-23); Calcium 8.4 mg/dL (8.3-10.6); Calcium (Corrected) 9.1 mg/dL (8.5-10.1); Carbon Dioxide 24.1 mMol/L (20.0-31.0); Chloride 109 mMol/L (98-107); Creatinine (Component) 0.6 mg/dL (0.6-1.3); Globulin 2.7 gm/dL (2.3-3.5); Glucose 252 mg/dL (74-106); Osmolality,Calculated 288 (275-295); Potassium 3.8 mMol/L (3.4-5.1); Sodium 141 mMol/L (136-145); Thyroid Stimulating Hormone 0.52 uIU/mL (0.55-4.78); Total Protein 5.8 gm/dL (5.7-8.2); eGFR > 60 See Note
[2025-02-24 18:00] LABS: Slide Review Platelets confirmed
--- NOTE | 2025-03-01 15:52 | CTCFLWUP_ITS ---
Patient: NICHOLE FITZGERALD : 1960 Page 2 of 2 FOLLOW UP NOTE DATE OF SERVICE: 03/01/2025 NAME: NICHOLE FITZGERALD ACCOUNT: [id number] : 1960 AGE: 64 INTERVAL HISTORY: Subjective: Continues on maintenance Macrobid and doing well with UTIs. Patient is also on immunotherapy for her HCC and doing well. Patient is here to discuss MRI results. MRI results reviewed and show response to treatment. History of Present Illness Nichole, a female patient with a history of liver disease and recent immunotherapy treatment, presents for follow-up regarding elevated liver enzymes and recurrent urinary tract infections. The patient reports a history of elevated liver enzymes, which have been slowly improving. She has been taking rifaximin 550 mg twice daily as part of her treatment regimen. The patient also mentions experiencing two episodes of urinary tract infections recently. The first episode was severe, with the patient noting blood in her urine. The second time, she sought medical attention promptly upon noticing symptoms, and was prescribed the same antibiotics as before. The patient does not report any current symptoms related to her liver condition or urinary tract infections. She mentions having seen a doctor at [facility] via videoconference recently, who detected the urinary tract infection and prescribed medication. Medications and Supplements - Rifaximin 550 mg by mouth twice daily - Used to keep ammonia low - Bactrim - Discontinued. Was used for urinary tract infection. - Macrobid 100 mg by mouth once daily - Used prophylactically for urinary tract infections Review of Systems Genitourinary: Positive for urinary tract infection, history of hematuria. Negative for vaginal dryness. Objective: Laboratory, Imaging, and Diagnostic Test Results - Liver enzymes: Elevated, slowly improving - Urinalysis: Positive for urinary tract infection (performed twice, dates not specified) yONCOLOGY HISTORY: ONCOLOGY HISTORY:?[facility] Oncology Hx? DIAGNOSIS: Iron deficiency anemia, unspecified [ICD10] D50.9 Iron deficiency anemia, unspecified [ICD10] D50.9 DATE OF DIAGNOSIS: STAGE/TNM: TREATMENT HISTORY: Care?Plan Start?Date Cycle Day Intent VENOfer?200mg?IV?wkly?for?10?weeks 03/12/2022 1 70 Palliative Atezolizumab?plus?Avastin 06/21/2022 1 21 Palliative ATEZolizumab?1 12/19/2022 1 21 Palliative INJECTAFER 12/13/2022 1 14 Palliative Tremelimumab?Durvalumab 03/12/2023 1 28 Palliative Durvalumab?maintenance?cholangiocarcinoma?regimen?2 11/05/2023 1 28 Palliative FERAheme?4?doses 02/17/2024 1 28 Maintenance HISTORY OF PRESENT ILLNESS: Nichole Gomez is a 64-year-old S[place] speaking female referred to hematology clinic to evaluate the cause for pancytopenia. Patient was previously seen at [facility] who did not feel she was a candidate for surgical resection, and subsequently referred for radioembolization (Y90) ablation therapy at [facility] in [place], who, per daughter, then referred patient to our cancer center for immunotherapy to see if the tumor could be shrunk first. 1980s: Patient had multiple blood transfusions in [place] for hemorrhage. 2005: Patient was diagnosed with hepatitis C, cirrhosis of the liver and thrombocytopenia. 2018: She was treated for hepatitis C with injections. Patient does not remember the names of the drugs. 2019: Patient had colonoscopy done 08/24/2021: WBC 2.3, ANC 1.2, hemoglobin 10.6, MCV 71, platelet count 52,000 peripheral smear showed few teardrop cells, ovalocytes, schistocytes 01/03/2022: AFP 47.1, HIV negative, ferritin 5 HCV RT-PCR quantitative negative hemoglobin 9.8, MCV 74, platelets 45,000. 02/05/2022: Platelet count 60,000. 02/21/2022: MRI of the abdomen with and without contrast? 05/25/2022: CT scan of the chest, abdomen and pelvis with IV contrast: 07/12/2022: AFP level 231 07/23/2022: Patient reports feeling good, denies complaints except concern about a 1cm round purpuric scaley lesion on distal left arm. She reports tolerating her first two atezolizumab and bevacizumab infusions on 06/21/2022 and 07/12/2022 very well with no symptoms, next session is planned for 08/02/2022. She has been getting them via RUE PICC line, as her platelets were deemed too low for port-a-cath placement. Patient has previously received avatrombopag to raise platelet levels, however this must be balanced against the risk of thrombosis. A CT scan on 06/13/2022 showed extensive tumor thrombus in the portal venous system, for which patient was started on treatment dose Eliquis. However, on this visit patient?s daughter reports that the [facility] tumor board deemed anticoagulation too risky given patient?s thrombocytopenia and hx GI bleed and discontinued it (we will request this documentation from them). Patient?s daughter also reports that on 06/19/2022, patient?s lymph node was biopsied (we will request these records as well). Dr Haines called and spoke with IR Dr Reed by phone on 07/23/2022, who agrees to attempt chemo-port placement as long as patient has 2 units of platelet pheresis running right before. CBC/PT/INR will also need to be redrawn beforehand. 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 09/13/2022 AFP 2.7 06/19/2022 pathology report came through from 06/19/2022: 09/25/2022: CT 10/18/2022: MRI abdomen w/o contrast 10/29/2022: AFP 3.30, bilirubin 3.5 11/13/2022 - 11/19/2022: Patient was admitted to the hospital for upper GI bleeding from esophageal varices. She had banding done. 12/06/2022: T. bili is 2.7, AFP is 3.80. 12/20/2022 - 01/01/2023: Ms. Fitzgerald was admitted to [facility] because of bleeding varicose veins as well as hypotension requiring pressor support. 01/10/2023: MRI abdomen with and without contrast, MRI abdomen without contrast MRCP? 03/12/2023: Ms. Fitzgerald is started on tremelimumab and durvalumab. 05/23/2023: Ms. Fitzgerald was admitted to [facility] due to upper GI bleeding from esophageal varices. She had banding done in the hospital by Dr. Garland. Currently she is being evaluated for TIPS procedure later this week in [place] by Dr. Snyder. 08/30/2023: MRI of the abdomen 12/12/2023 MRI liver impression Bob RADS category LR M DIV based on 02/21/2022 appearance and resuming noted local regional therapy for the dominant lesion in segment 4A oblique 8 although there is central hypointense area that appears to be relatively nonviable tumor there is again a surrounding area of ill-defined hyperenhancement which is likely viable tumor. Focus arterial enhancement along the left inferior aspect described on 01/10/2023 has not recently changed. Observation is likely not significantly changed from 05/14/2023 and 01/10/2023 the other previously described liver observation has been downgraded to Bob RADS category alert to. Extensive thrombus in the portal venous system is not def initely changed OTHER MEDICAL HISTORY/CONDITIONS: FAMILY HISTORY: ?Clone Family Hx? 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 albuterol - 90 mcg/actuation As directed 2. atorvastatin - 20 mg 1 tab Daily 3. azithromycin - 250 mg 6 tab Daily 4. lactulose - 20 gram 1 Three times a day 5. Lantus Solostar - 100 unit/mL (3 mL) 35 Unit Twice a Day 6. nitrofurantoin macrocrystal - 100 mg 1 Capsule Daily 7. pantoprazole - 40 mg 1 Daily 8. Synthroid - 50 mcg 1 tab As directed 9. Xifaxan - 550 mg Twice a Day 10. ZyrTEC - 10 mg 1 Capsule Daily?Palabra Meds? Medications Last Reconciled by Elisa Gresham MD on 01/04/2025 ALLERGIES: No Known Drug Allergies REVIEW OF SYSTEMS: A complete 14-point review of systems was performed and is negative except as noted in interval history. PHYSICAL EXAMINATION:?[facility] PE? VITAL SIGNS: Temperature?97.4, B/P?113/70, Oxygen?Saturation?93% Weight?173?lbs (Change?since?02/25/25:?0.2?lbs) PAIN: 0 - No pain GENERAL APPEARANCE: Appears well, in no apparent distress, appropriately interactive. HEENT: Normocephalic, no temporal wasting, normal conjunctiva, no scleral icterus, normal hearing, lips without lesions, neck normal range of motion. CARDIOVASCULAR: Not assessed. PULMONARY: Normal respiratory effort, no respiratory distress or use of accessory muscles, speaking in full sentences, no tachypnea. EXTREMITIES: No pedal edema or cyanosis. SKIN: Normal skin appearance. NEUROLOGIC: Alert and oriented x4. PSHYCHIATRIC: Appropriate affect, mood normal, behavior normal, intact thought and speech. LABORATORY DATA: I have personally reviewed and interpreted each of the patient?s relevant lab tests, abnormal findings are below: Date 01/27/25 02/24/25 ??WHITE?BLOOD?COUNT?(Thou/mm3) ? 1.9?L ??RED?BLOOD?COUNT?(Miln/mm3) ? 4.34 ??HEMOGLOBIN?(gm/dl) ? 13.4 ??HEMATOCRIT?(%) ? 39.6 ??PLATELET?COUNT?(Thou/mm3) ? 36?L ??NEUTROPHILS?%,?AUTO?(%) ? 56 ??LYMPH?%,?AUTO?(%) ? 31 ??NEUTROPHILS,?AUTO?(Thou/mm3) ? 1.1?L ??GLUCOSE,RANDOM?(mg/dL) 163?H 252?H ??BLOOD?UREA?NITROGEN?(mg/dL) 8?L 7?L ??CREATININE?(mg/dL) 0.50?L 0.60 ??SODIUM?(mmol/L) 141 141 ??POTASSIUM?(mmol/L) 3.7 3.8 ??CHLORIDE?(mmol/L) 109?H 109?H ??CrCl?(CandG)?(ml/min) 143.58 116.80 ??AST/SGOT?(Unit/L) 60?H 67?H ??ALT/SGPT?(Unit/L) 57?H 58?H ??ALKALINE?PHOSPHATASE?(Unit/L) 186?H 218?H ??BILIRUBIN,?TOTAL?(mg/dL) 2.4?H 2.8?H ??PROTEIN?TOTAL?(gm/dl) 5.7 5.8 ??ALBUMIN,?SERUM?(gm/dl) 3.0?L 3.1?L ??GLOBULIN?(gm/dl) 2.7 2.7 ??ALBUMIN/GLOBULIN?RATIO 1.1?L 1.1?L ??CALCIUM,?SERUM?(mg/dL) 8.4 8.4 ??CALCIUM?SERUM?(CORRECTED)?(mg/dL) 9.2 9.1 ASSESSMENT/PLAN:?[facility] [place]urcio Assessment/Plan? Hepatocellular tumor Patient received first dose of durvalumab and tremelimumab and now on maintenance durvalumab recently Ms. Fitzgerald had follow-up visit with Dr. Farmer of [facility] who recommended continuing durvalumab Ms. Fitzgerald is currently on single agent dose of durvalumab. She is tolerating it reasonably well.. September 2024 MRI is negative MRI from January 2025 is stable. Liver lesion is reduced in size Blood clots were not clearly characterized as there was a motion artifact But otherwise hepatocellular tumor has a reduced in size Continue immunotherapy Patient have TSH less than 1 will stop levothyroxine 2. Portal vein thrombus --CT scans showed right lobe liver lesion as well as splenomegaly, portal hypertension, mild ascites as well as extensive para-aortic, paracaval lymphadenopathy. CT scan on 06/13/2022 scan also showed extensive tumor thrombus in the portal venous system for which treatment-dose Eliquis was previously initiated, and stopped per [facility] tumor board due to concern for thrombocytopenia and previous GI bleed. 3 History of hepatitis C infection, she was treated with unknown medication(s) in [place] in 2018 ORDERS: Order # Description [id number] Follow Up 2 Months + Comprehensive Metabolic Panel - 12 + CBC with Auto Diff [id number] AFP RETURN TO CLINIC: I reviewed the diagnosis, prognosis, and recommended treatment/procedure options with the patient (and/or their legal roofing sales representative), including the potential benefits, risks, side effects and alternative therapies. We also discussed the option of no treatment and the possibility of clinical trial participation, if applicable. All questions were addressed, and they demonstrated understanding. They provided informed consent to proceed with the proposed plan of care. BILLING AND COMPLIANCE: I reviewed external records from providers outside my specialty as summarized above. I spent a total of 50 minutes on this patient?s care on the day of their visit excluding time spent related to any billed procedures. This time includes time spent with the patient as well as time spent documenting in the medical record, reviewing patients records and tests, obtaining history, placing orders, communicating with other healthcare professionals, counseling the patient, family or caregiver, and/or care coordination for the diagnoses above. Electronically Signed by: Fransisco Dey MD T: 3:49 PM CC: PCP: Chau Arvizu Referring: Chau Arvizu This document was completed utilizing speech recognition software. Grammatical errors, random word insertions, pronoun errors, and incomplete sentences are an occasional consequence of this system due to software limitations, ambient noise, and hardware issues. Any formal questions or concerns about the content, text or information contained within the body of this dictation should be directly addressed to the provider for clarification.
[2025-03-02 06:23] LABS: CA 19-9 Antigen* 56 U/mL (<34)
== END 2025-03-14 23:59 | disposition home or self-care (01) ==
LOC: SCTC 08:04
PROVIDERS: PCP Family Medicine; Referring Provider Family Medicine; Visit Provider Internal Medicine Hematology & Oncology
DX: Z51.12 Encounter for antineoplastic immunotherapy (principal); C22.0 Liver cell carcinoma; Z86.718 Personal history of other venous thrombosis and embolism; Z86.19 Personal history of other infectious and parasitic diseases
CPT/HCPCS: 36591; 80053; 82105; 82247; 82248; 84443; 85025; 86301; 96367; 96413; 99213; A4216; J1642; J2405; J3490; J7030; J7050; J9173; G0463

== ENCOUNTER 2025-03-25 13:29 | Outpatient (RCR) | payer MEDICAID, SELFPAY ==
[2025-03-24 12:38] LABS: Basophils # (Auto) 0.0 Thou/mm3 (0.0-0.2); Basophils % (Auto) 1 % (0-2.5); Eosinophils # (Auto) 0.1 Thou/mm3 (0.0-0.5); Eosinophils % (Auto) 4 % (0-10); Hematocrit 40.8 % (36.0-46.0); Hemoglobin 13.5 g/dL (12.0-16.0); Immature Granulocytes Auto 0.01 Thou/mm3 (0.00-0.00); Lymphocytes # (Auto) 0.5 Thou/mm3 (1.0-4.8); Lymphocytes % (Auto) 33 % (10-50); Mean Corpuscular HGB Conc 33.1 g/dl (31.0-37.0); Mean Corpuscular Hemoglobin 30.3 pg (25.0-35.0); Mean Corpuscular Volume 92 fL (80-100); Monocytes # (Auto) 0.2 Thou/mm3 (0.0-0.8); Monocytes % (Auto) 12 % (0-12); Neutrophils # (Auto) 0.8 Thou/mm3 (1.8-7.7); Neutrophils % (Auto) 50 % (37-80); Nucleated Red Blood Cell # 0.00 Thou/mm3 (0.00-0.00); Nucleated Red Blood Cell % 0 /100 WBC (0); RDW Standard Deviation 48.8 fL (36.4-46.3); Red Blood Count 4.45 Miln/mm3 (4.00-5.20); White Blood Count 1.6 Thou/mm3 (3.6-11.0)
[2025-03-24 12:45] LABS: Platelet Count 33 Thou/mm3 (140-440)
[2025-03-24 12:55] LABS: AFP Non-Pregnant 2.90 ng/mL (<8.10)
[2025-03-24 13:00] LABS: Alanine Aminotransferase 69 U/L (10-49); Albumin, Serum 3.2 gm/dL (3.4-4.8); Albumin/Globulin Ratio 1.0 (1.2-2.2); Alkaline Phosphatase 230 U/L (46-116); Anion Gap 12 (7-16); Aspartate Amino Transferase 71 U/L (0-34); BUN/Creatinine Ratio 14 Ratio (12-20); Bilirubin,Total 2.7 mg/dL (0.3-1.2); Blood Urea Nitrogen 7 mg/dL (9-23); Calcium 8.5 mg/dL (8.3-10.6); Calcium (Corrected) 9.1 mg/dL (8.5-10.1); Carbon Dioxide 23.3 mMol/L (20.0-31.0); Chloride 110 mMol/L (98-107); Creatinine (Component) 0.5 mg/dL (0.6-1.3); Globulin 3.1 gm/dL (2.3-3.5); Glucose 118 mg/dL (74-106); Osmolality,Calculated 287 (275-295); Potassium 3.4 mMol/L (3.4-5.1); Sodium 145 mMol/L (136-145); Thyroid Stimulating Hormone 3.66 uIU/mL (0.55-4.78); Total Protein 6.3 gm/dL (5.7-8.2); eGFR > 60 See Note
[2025-03-24 13:34] LABS: Bilirubin,Direct 0.8 mg/dL (0.0-0.3); Bilirubin,Indirect 1.8 mg/dL (0.0-1.1); Bilirubin,Total 2.6 mg/dL (0.3-1.2)
[2025-03-24 15:45] LABS: Slide Review Platelets confirmed
== END 2025-04-14 23:59 | disposition home or self-care (01) ==
LOC: SCTC 13:29
PROVIDERS: PCP Family Medicine; Referring Provider Family Medicine; Visit Provider Internal Medicine Hematology & Oncology
DX: C22.0 Liver cell carcinoma (principal); N39.0 Urinary tract infection, site not specified; I81 Portal vein thrombosis; R16.1 Splenomegaly, not elsewhere classified; K76.6 Portal hypertension; R18.8 Other ascites; R59.0 Localized enlarged lymph nodes; Z86.19 Personal history of other infectious and parasitic diseases
CPT/HCPCS: 36591; 80053; 82105; 82247; 82248; 84443; 85025; A4216; J1642; J2405; J3490; J7050; J9173